=== PATIENT | female | born 1950 | race Caucasian/White ===

== ENCOUNTER 2016-11-01 12:15 | Emergency (ER) | END 2016-11-01 15:02 | disposition home or self-care (01) ==

== ENCOUNTER 2016-12-09 13:30 | Outpatient (CLI) | payer MEDICARE ==
[2016-12-09 19:10] LABS: BASOPHILS # (AUTO) 0.1 10^3/uL (0.0-0.1); BASOPHILS % (AUTO) 1.3 %; EOSINOPHILS # (AUTO) 0.3 10^3/uL (0.0-0.7); EOSINOPHILS % (AUTO) 2.5 %; HCT - HEMATOCRIT 30.2 % (37.0-47.0); HGB - HEMOGLOBIN 9.5 g/dL (12.0-16.0); LYMPHOCYTES # (AUTO) 2.3 10^3/uL (1.5-3.5); LYMPHOCYTES % (AUTO) 21.1 %; MEAN CORPUSCULAR HGB CONC 31.6 g/dL (32.0-36.0); MEAN CORPUSCULAR VOLUME 101.1 fL (81.0-99.0); MEAN PLATELET VOLUME 7.7 fL (7.9-10.8); MONOCYTES # (AUTO) 0.8 10^3/uL (0.0-1.0); MONOCYTES % (AUTO) 7.2 %; NEUTROPHILS # (AUTO) 7.4 10^3/uL (1.5-6.6); NEUTROPHILS % (AUTO) 67.9 %; NUCLEATED RED BLOOD CELLS AUTO 0.1 /100WBC; RED BLOOD COUNT 2.99 10^6/uL (4.20-5.40); RED CELL DISTRIBUTION WIDTH 16.2 % (12.0-15.0); UNCORRECTED WHITE BLOOD COUNT 10.9 x10^3/uL; WHITE BLOOD COUNT 10.9 x10^3/uL (4.8-10.8)
[2016-12-09 19:19] LABS: ALBUMIN/GLOBULIN RATIO 1.2 (1.0-2.2)
[2016-12-09 19:33] LABS: BILIRUBIN,TOTAL 0.3 mg/dL (0.2-1.0); BUN - BLOOD UREA NITROGEN 27 mg/dL (6-20); CALCIUM 10.1 mg/dL (8.5-10.3); CARBON DIOXIDE - CO2 23 mmol/L (21-32); CHLORIDE 102 mmol/L (101-111); CHOL/HDL RATIO 3.8 (<4.4); CHOLESTEROL 232 mg/dL; CREATININE 0.9 mg/dL (0.4-1.0); GFR - MDRD 63 (>89); GLUCOSE 87 mg/dL (70-100); HDL CHOLESTEROL 61 mg/dL; LDL/HDL RATIO 2.2 (<4.4); POTASSIUM 4.4 mmol/L (3.5-5.0); SODIUM 136 mmol/L (135-145); TOTAL PROTEIN 7.5 g/dL (6.7-8.2); TRIGLYCERIDES 173 mg/dL; VLDL CHOLESTEROL 35 mg/dL
[2016-12-09 20:02] LABS: PLATELET ESTIMATE, MANUAL INCREASED (>450,000) (NORMAL); PLATELET MORPHOLOGY RARE GIANT PLATELETS (NORMAL); SLIDE SENT FOR PATH REVIEW? Indicated
[2016-12-09 20:04] LABS: CBC SPECIMEN NUMBER 645759; PATHOLOGIST REVIEW ORDER PATH SLIDE REVIEW
== END 2016-12-09 13:31 | disposition home or self-care (01) ==
LOC: LAB.WCP 13:30
PROVIDERS: ATTEND Family Medicine
DX: R53.83 Other fatigue (principal); E78.5 Hyperlipidemia, unspecified
CPT/HCPCS: 36415; 80053; 80061; 84443; 85025

== ENCOUNTER 2017-01-03 12:45 | Outpatient (CLI) | payer MEDICARE | END 2017-01-03 12:46 | disposition home or self-care (01) | DX: Z12.2 Encounter for screening for malignant neoplasm of respiratory organs (principal); R91.1 Solitary pulmonary nodule; J43.9 Emphysema, unspecified; Z87.891 Personal history of nicotine dependence ==

== ENCOUNTER 2017-06-20 10:37 | Outpatient (CLI) | payer MEDICARE ==
--- NOTE | 2017-06-21 18:03 | Mammography Report ---
DIGITAL SCREENING MAMMOGRAM: 06/20/2017 CLINICAL INDICATION: A 67-year-old with history of late childbearing for screening. COMPARISON: 07/2015, 12/2012, 12/2011, 12/2010, 07/2009, 07/2008, 07/2007. TECHNIQUE: Routine CC and MLO projections were obtained of the breasts. The breasts again demonstrate scattered fibroglandular densities bilaterally. Coarse and punctate, t ypically benign calcifications are present. No suspicious masses, clustered microcalcifications, or regions of architectural distortion are identified. IMPRESSION: BENIGN FINDINGS. RECOMMENDATION: ROUTINE ANNUAL SCREENING UNLESS OTHERWISE CLINICALLY INDICATED. BIRADS CATEGORY: 2, BENIGN FINDINGS. STANDARD QUALIFYING STATEMENTS 1. This examination was reviewed with the aid of Computed-Aided Detection (CAD). 2. A negative or benign imaging report should not delay biopsy if clinically suspicious findings are present. Consider surgical consultation if warranted. More than 5% of cancers are not identified b y imaging. 3. Dense breasts may obscure an underlying neoplasm. JOB #: [id number] EXT JOB #:[id number]
== END 2017-06-20 10:38 | disposition home or self-care (01) ==
LOC: DI 10:37
PROVIDERS: ATTEND Family Medicine
DX: Z12.31 Encounter for screening mammogram for malignant neoplasm of breast (principal)
CPT/HCPCS: 77067

== ENCOUNTER 2017-06-23 08:02 | Day surgery (SDC) | payer MEDICARE ==
[2017-06-23] MEDS ORDERED: LACTATED RINGERS 1,000 ML IV ONE ×2 (08:50→10:50)
--- NOTE | 2017-06-23 10:05 | HISTORY & PHYSICAL EXAMINATION ---
HPI - History of Present Illness HPI Comment/Other: Visit Type: Initial Consult History of Present Illness: Patient is here today for consult, EGD and colonoscopy. ...................................................................Riley Jones RN May 06, 2017 10:40 AM Patient is here for iron deficiency anemia and evaluation of a hiatal hernia. Current Meds: PROBIOTIC CAPS (SACCHAROMYCES BOULARDII CAPS) Take one capsule by mouth daily RANITIDINE HCL 150 MG TABS (RANITIDINE HCL) take one tablet by mouth every evening VITAMIN E-400 CAPS (VITAMIN E CAPS) Take 94027 capsule by mouth daily GLUCOSAMINE CHONDROITIN MSM ORAL TABS (MISC NATURAL PRODUCTS) Take one 1500mg tablet by mouth daily SM VITAMIN B-12 500 MCG ORAL TABS (CYANOCOBALAMIN) Take one tablet by mouth daily PROAIR RESPICLICK 108 (90 BASE) MCG/ACT INH AEPB (ALBUTEROL SULFATE) Inhale two actuations every four to six hours as needed for wheezing or coughing HYDROCODONE-ACETAMINOPHEN 5-325 MG TABS (HYDROCODONE-ACETAMINOPHEN) Take one tablet up to three times daily for severe arthritis hip pain BIOTIN 1000 MCG TABS (BIOTIN) Take five tablets by mouth daily CENTRUM SILVER TABS (MULTIPLE VITAMINS-MINERALS) one po daily CALCIUM 600 MG ORAL TABS (CALCIUM) Take one tablet by mouth daily VITAMIN D 1000 UNIT TABS (CHOLECALCIFEROL) Take 5000 Iu once daily for vit D deficiency Allergies: BETADINE (Critical) ZOCOR (Critical) LEVAQUIN (Mild) Past Medical History: Reviewed history from 12/29/2013 and no changes required: Current Problems: HX TOBACCO USER (ICD-305.1) OSTEOARTHRITIS, KNEE, RIGHT (ICD-715.96) HYPERLIPIDEMIA (ICD-272.4) OSTEOPENIA (ICD-733.90) SOB Anemia Frequent Indigestion Heartburn Acid Reflux Depression Current Meds: ACYCLOVIR 400 MG TABS (ACYCLOVIR) Take one tablet 3 times daily for 5 days as needed for cold sores VICODIN 5-500 MG TABS (HYDROCODONE-ACETAMINOPHEN) 1-2 PO every 6 hours PRN Pain * KNEE SCOOTER dx: ankle and foot fracture VITAMIN D 1000 UNIT TABS (CHOLECALCIFEROL) once daily for vit D deficiency CALCIUM 500 MG TABS (CALCIUM) Two daily HYDROCHLOROTHIAZIDE 12.5 MG CAPS (HYDROCHLOROTHIAZIDE) one QD Allergies: BETADINE, ZOCOR, * CHANTIX. Intolerant of Levaquin--N/V Past Surgical History: Reviewed history from 07/03/2015 and no changes required: Left knee - ORIF Left hip arthroplasty - 1997 Left lower eyelid surgery - 1991 (basal cell carcinoma) Cataract Extraction Total Hip Arthroplasty R Knee Arthroscopy Family History Summary: Reviewed history Last on 06/10/2015 and no changes required:05/06/2017 Father (biol.) - Has a father - Entered On: 10/11/2014 Mother (biol.) - Has a Hx of Melanoma - Entered On: 06/10/2015 Mother (biol.) - Has Family History of Other Medical Problems - Heart attack, Stents - Entered On: 05/06/2017 Sister (full) - Has Family History of Other Medical Problems - Cancer, age 61 - Entered On: 05/06/2017 General Comments - FH: Father: , EtOH Social History: Reviewed history from 06/10/2015 and no changes required: 40 year pack history Lives by herself Alcohol Use - no Drug Use - no Smoking History: Patient is a former smoker. Risk Factors: Smoked Tobacco Use: Former smoker Cigarettes: Yes -- 1/4 to 1/2 pack(s) per day, Year started: 1971 Years smoked: 40 Year quit: 2017 Years Since Last Quit: 0 Smokeless Tobacco Use: Never Passive smoke exposure: no Drug use: no HIV high-risk behavior: no Caffeine use: 5 drinks per day Alcohol use: no Exercise: yes Times per week: 5 Type of Exercise: 3 mile walk Seatbelt use: 100 % Sun Exposure: rarely Family History Risk Factors: Family History of WA in females < 65 years old: no Family History of WA in males < 55 years old: no Physical Exam General: well developed, well nourished, in no acute distress Lungs: clear bilaterally to A & P Heart: regular rate and rhythm, S1, S2 without murmurs, rubs, gallops, or clicks Abdomen: bowel sounds positive; abdomen soft and non-tender without masses, organomegaly, or hernias noted Pulses: pulses normal in all 4 extremities Extremities: no clubbing, cyanosis, edema, or deformity noted with normal full range of motion of all joints Cervical Nodes: no significant adenopathy Psych: alert and cooperative; normal mood and affect; normal attention span and concentration Impression & Recommendations: Problem # 1: Anemia (ICD-285.9) (LAD72-L04.9) Will proceed with both EGD and Colonoscopy PMH/PSH - Past Medical History Cardiovascular: positive: None Respiratory: positive: None Neuro: positive: None Endocrine/Autoimmune: positive: None GI: positive: GERD, Colon polyps : positive: None HEENT: positive: None Psych: positive: None Musculoskeletal: positive: Osteoarthritis, Osteoporosis Derm: positive: None MRSA Hx?: No - Past Surgical History General: positive: Colonoscopy Ortho: positive: Hip replacement, Knee replacement HEENT: positive: Cataracts Social & Family Hx - Social History Does the pt smoke?: No Smoking Status: Never smoker Meds/Allgy - Home Medications Home Medications: Ambulatory Orders Medication Instructions Recorded Confirmed Calcium Citrate [Calcitrate] 200 mg PO DAILY 12/13/13 04/04/17 HYDROcod/ACETAM 5/325 [Vicodin 1 each PO Q4-6H PRN 12/13/13 04/04/17 5/325] Multivitamin [Multivitamins] 1 each PO DAILY 12/13/13 04/04/17 Vit D3-Vit K/Berberine/Hops 1 each PO DAILY 12/13/13 04/04/17 [Ostera Tablet] Azithromycin [Zithromax] 250 mg PO DAILY #6 tablet 11/01/16 04/04/17 Benzonatate [Tessalon] 100 mg PO TID PRN #20 capsule 11/01/16 04/04/17 guaiFENesin/DEXTROMETHORPHAN 10 ml PO Q6H PRN #120 ml 11/01/16 04/04/17 [Robitussin Dm] Cyanocobalamin (Vitamin B-12) 100 mcg PO DAILY 04/04/17 04/04/17 [Vitamin B-12 (100mcg tab)] Omeprazole [PriLOSEC] 20 mg ORAL DAILY PRN 06/23/17 06/23/17 raNITIdine [Zantac] 150 mg ORAL DAILY 06/23/17 06/23/17 - Allergies Allergies/Adverse Reactions: Allergies Allergy/AdvReac Type Severity Reaction Status Date / Time povidone-iodine Allergy Intermediate swelling Verified 12/12/13 14:54 [From Betadine] soap * [From Betadine] Allergy Intermediate swelling Verified 12/12/13 14:54 Exam - Vital Signs Vital Signs: Vital Signs x48h Temp Pulse Resp BP Pulse Ox 06/23/17 08:27 36.7 C 97 18 158/84 H 96
[2017-06-23] MEDS ORDERED: MIDAZOLAM 2 MG/2 ML VIAL IVP ONE (10:06)
[2017-06-23] MEDS ORDERED: fentaNYL 100 MCG/2 ML VIAL IVP ONE (10:06)
[2017-06-23] MEDS ORDERED: BENZOCAINE/TETRACAINE/BUTAMBEN SPRAY 56 GM TOP ONE ×2 (10:08→10:11)
[2017-06-23 12:18] VITALS: BP 125/66
== END 2017-06-23 08:03 | disposition home or self-care (01) ==
LOC: SDS 08:02
PROVIDERS: ATTEND Surgery
PROC: 0DBL8ZX Excision of Transverse Colon, Via Natural or Artificial Opening Endoscopic, Diagnostic (ICD-10-PCS; principal; 2017-06-23 09:30)
PROC: 0DB68ZX Excision of Stomach, Via Natural or Artificial Opening Endoscopic, Diagnostic (ICD-10-PCS; 2017-06-23 09:30)
DX: K29.70 Gastritis, unspecified, without bleeding (principal); K25.9 Gastric ulcer, unspecified as acute or chronic, without hemorrhage or perforation; K44.9 Diaphragmatic hernia without obstruction or gangrene; K64.8 Other hemorrhoids; D12.3 Benign neoplasm of transverse colon; K57.90 Diverticulosis of intestine, part unspecified, without perforation or abscess without bleeding; Z87.891 Personal history of nicotine dependence
CPT/HCPCS: 43239; 45380; 88305; A9270; J7120

== ENCOUNTER 2017-06-27 13:43 | Outpatient (CLI) | payer MEDICARE ==
--- NOTE | 2017-06-28 07:33 | DEXA Report ---
DEXA SCAN: 06/27/2017 CLINICAL INDICATION: Postmenopausal. TECHNIQUE: Dual energy x-ray absorptiometry (DXA) was performed on a [employer] system. Regions measured are the AP spine, femoral neck, and, if needed, forearm. COMPARISON: None. In accordance with the International Society for Clinical Densitometry (ISCD) guidelines, data from previous exams may be reanalyzed using current recommendations and techniques. This is done to allow a more accurate basis for comparison with the current study. FINDINGS: The data for the lumbar spine is as follows: REGION BMD (g/cm/cm) T-SCORE Z-SCORE L1 0.851 -2.3 -0.4 L2 0.965 -2.0 0.0 L3 0.976 -1.9 0.1 L4 1.060 -1.2 0.8 L1-L4 0.964 -1.8 0.1 NOTE: All evaluable vertebrae are used for classification. The data for the hip is as follows: REGION BMD (g/cm/cm) T-SCORE Z-SCORE Neck 0.922 -0.8 0.9 TOTAL 0.822 -1.5 0.0 NOTE: The femoral neck or total proximal femur, whichever is lowest, is used for classification. IMPRESSION: 1. THE WHO CLASSIFICATION BASED ON THE INTERNATIONAL REFERENCE STANDARD IS OSTEOPENIA. THE FRACTURE RISK IS INCREASED. 2. RIGHT HIP EVALUATION PERFORMED DUE TO PREVIOUS LEFT HIP REPLACEMENT. RECOMMENDATION: Patients with diagnosis of osteoporosis or osteopenia should have regular bone mineral density assessment. For those eligible for Medicare, routine testing is allowed once every 2 years. Testing frequency can be increased for patients who have rapidly progressing disease or for those who are receiving medical therapy to restore bone mass. COMMENT: World Health Organization (WHO) definitions for osteoporosis and osteopenia: NORMAL BMD: T-score at -1.0 or higher, fracture risk is low. OSTEOPENIA BMD: T-score between -1.0 and -2.5, fracture risk is increased. OSTEOPOROSIS BMD: T-score at -2.5 or lower, fracture risk high. National Osteoporosis Foundation recommends: 1. Obtain adequate dietary calcium (at least 1200 mg per day) and vitamin D (400 -800 international units per day). 2. Participate, as appropriate, in regular weightbearing and muscle- strengthening exercise. 3. Avoid tobacco use and reduce alcohol and caffeine intake. 4. For more detailed information see the website at www.NOF.org. MTDD
== END 2017-06-27 13:44 | disposition home or self-care (01) ==
LOC: DI 13:43
PROVIDERS: ATTEND Family Medicine
DX: M85.88 Other specified disorders of bone density and structure, other site (principal); Z96.642 Presence of left artificial hip joint; Z78.0 Asymptomatic menopausal state
CPT/HCPCS: 77080

== ENCOUNTER 2017-07-01 13:27 | Outpatient (CLI) | payer MEDICARE | END 2017-07-01 13:28 | disposition home or self-care (01) | LOC: RT 13:27 | PROVIDERS: ATTEND Internal Medicine Pulmonary Disease | DX: R91.1 Solitary pulmonary nodule (principal) ==

== ENCOUNTER 2018-06-06 16:15 | Outpatient (CLI) | payer MEDICARE ==
--- NOTE | 2018-06-07 08:17 | XRAY Report ---
Procedure Date: 06/06/2018 Accession Number: [id number] / [id number] Procedure: XR - Lumbar Spine Complete CPT Code: FULL RESULT: EXAM: Lumbar Spine Complete, Sacrum/Coccyx DATE: 06/06/2018 4:57 PM CLINICAL HISTORY: LUMBOSACRAL PAIN COMPARISON: None. TECHNIQUE: 2 views. FINDINGS: Alignment: Mild levoconvex scoliosis centered about L3. No spondylolisthesis. Bones: Five qjl-uab-ptiaudo lumbar vertebral bodies are present. There is an anterior wedge compression fracture of T12 with 50% loss of height anteriorly, also present in 2016 and therefore chronic. No acute fracture is identified. Disks: Mild multilevel loss of disc space height, most pronounced at T12-L1. Facets: Moderate facet arthropathy of L4 and L5. Sacroiliac Joints: Congruent. Soft Tissues: Normal. The visualized bowel gas pattern is normal. No coccygeal fracture is identified. The patient is status post bilateral total hip replacements, partially imaged. There are periprosthetic lucencies associated with the acetabular component of the left total hip arthroplasty. IMPRESSION: Chronic T12 wedge compression fracture. Periprosthetic osseous lucencies of the acetabular component of the left total hip arthroplasty. RADIA
--- NOTE | 2018-06-07 08:17 | XRAY Report ---
Procedure Date: 06/06/2018 Accession Number: [id number] / [id number] Procedure: XR - Sacrum/Coccyx CPT Code: FULL RESULT: EXAM: Lumbar Spine Complete, Sacrum/Coccyx DATE: 06/06/2018 4:57 PM CLINICAL HISTORY: LUMBOSACRAL PAIN COMPARISON: None. TECHNIQUE: 2 views. FINDINGS: Alignment: Mild levoconvex scoliosis centered about L3. No spondylolisthesis. Bones: Five xrh-lqt-ceoclgt lumbar vertebral bodies are present. There is an anterior wedge compression fracture of T12 with 50% loss of height anteriorly, also present in 2016 and therefore chronic. No acute fracture is identified. Disks: Mild multilevel loss of disc space height, most pronounced at T12-L1. Facets: Moderate facet arthropathy of L4 and L5. Sacroiliac Joints: Congruent. Soft Tissues: Normal. The visualized bowel gas pattern is normal. No coccygeal fracture is identified. The patient is status post bilateral total hip replacements, partially imaged. There are periprosthetic lucencies associated with the acetabular component of the left total hip arthroplasty. IMPRESSION: Chronic T12 wedge compression fracture. Periprosthetic osseous lucencies of the acetabular component of the left total hip arthroplasty. RADIA
== END 2018-06-06 16:16 | disposition home or self-care (01) ==
LOC: DI 16:15
PROVIDERS: ATTEND Orthopaedic Surgery
DX: M48.54XS Collapsed vertebra, not elsewhere classified, thoracic region, sequela of fracture (principal); Z96.643 Presence of artificial hip joint, bilateral
CPT/HCPCS: 72110; 72220

== ENCOUNTER 2019-03-12 14:31 | Outpatient (CLI) | payer MEDICARE ==
--- NOTE | 2019-03-12 16:29 | CT Report ---
Reason: BRONCHIECTASIS,HX OF TOBACCO USE Procedure Date: 03/12/2019 Accession Number: [id number] / [id number] Procedure: CT - CHEST WO CPT Code: FULL RESULT: EXAM: CT CHEST EXAM DATE: 03/12/2019 02:47 PM. CLINICAL HISTORY: Bronchiectasis, history of tobacco use. COMPARISONS: CHEST W/O 04/22/2017 11:01 AM CHEST SCREEN LOW DOSE W/O 01/03/2017 1:09 PM. TECHNIQUE: Routine helical CT imaging was performed through the chest. IV contrast: None. Reconstructions: Coronal and sagittal. In accordance with CT protocol optimization, one or more of the following dose reduction techniques were utilized for this exam: automated exposure control, adjustment of mA and/or KV based on patient size, or use of iterative reconstructive technique. FINDINGS: Lungs/Pleura: Right lun. There is a vaguely wedge-shaped area of groundglass opacity measuring roughly 3 x 4 x 3 cm in the anterior segment of the right upper lobe, which is a new finding; reference series 4 image 19. 2. Stable bandlike pleural-parenchymal changes with associated focal bronchiectasis extending to posteromedial major fissure are unchanged; reference series 4 images 22 through 24. 3. Previously described apical pleural parenchymal scarring is diminished. 4. New bandlike pleural parenchymal scarring change noted in the medial right middle lobe; reference series 6 image 15. 5. Otherwise no new pulmonary nodules. Left lun. New bandlike pleural parenchymal scarring change in the medial lingula; reference series 6 image 13. 2. No new pulmonary nodules. Pulmonary vasculature is normal. No pericardial or pleural effusion. No pneumothorax. Mediastinum: Stable moderate coronary artery calcium of the left anterior descending coronary artery and right coronary artery. No adenopathy or masses. The heart and great vessels are otherwise normal. Bones: Stable anterior wedging compression of T12. Visualized Abdomen: Stable moderate to large hiatal hernia. Other: None. IMPRESSION: 1. New wedge-shaped volume of nonspecific groundglass opacity in the right upper lobe favors infectious process/alveolitis. Consider short interval follow-up imaging in 6 months to ensure expected resolution. 2. New symmetrically positioned pleural-parenchymal scarring changes anterior right middle lobe and anterior lingula presumed sequela of recent inflammation or infection. 3. Otherwise stable exam findings as described. No new pulmonary nodules. RADIA
== END 2019-03-12 14:32 | disposition home or self-care (01) ==
LOC: DI 14:31
PROVIDERS: ATTEND Family Medicine
DX: J47.9 Bronchiectasis, uncomplicated (principal); Z87.891 Personal history of nicotine dependence
CPT/HCPCS: 71250

== ENCOUNTER 2019-11-28 18:14 | Outpatient (CLI) | payer MEDICARE | END 2019-11-28 18:15 | disposition critical access hospital (66) | LOC: EMS 18:14 | PROVIDERS: ATTEND Surgery | DX: M25.562 Pain in left knee (principal); W01.0XXA Fall on same level from slipping, tripping and stumbling without subsequent striking against object, initial encounter; Y93.01 Activity, walking, marching and hiking; Y92.000 Kitchen of unspecified non-institutional (private) residence as the place of occurrence of the external cause | CPT/HCPCS: A0425; A0429 ==

== ENCOUNTER 2019-11-28 18:46 | Emergency (ER) | payer MEDICARE ==
[2019-11-28] MEDS ORDERED: ACETAMINOPHEN 325 MG TABLET PO STA (19:34)
--- NOTE | 2019-11-28 19:49 | ED Physician Documentation ---
History of Present Illness - Stated complaint Stated Complaint: FELL, LEFT KNEE PAIN - Chief complaint Chief Complaint: General - History obtained from History obtained from: Patient, EMS - History of Present Illness Timing: Today Pain level max: 5 Pain level now: 1 - Additonal information Additional information: 69-year-old female presents to the emergency department after using her walker at home and falling in the kitchen. She states that she does not think she actually hit the ground. States that she heard to the outside of her knee. She states that the pain is now resolved. Worse with movement and better with rest. No head, neck, back pain. Review of Systems Constitutional: denies: Fever, Chills Respiratory: denies: Cough GI: denies: Vomiting, Diarrhea Skin: denies: Rash PD PAST MEDICAL HISTORY - Past Medical History Cardiovascular: None Respiratory: None Endocrine/Autoimmune: None GI: GERD, Colon polyps : None HEENT: None Psych: None Musculoskeletal: Osteoarthritis, Osteoporosis Derm: None - Past Surgical History General: Colonoscopy Ortho: Hip replacement, Knee replacement HEENT: Cataracts - Present Medications Home Medications: Ambulatory Orders Medication Instructions Recorded Confirmed Calcium Citrate [Calcitrate] 600 mg PO DAILY 12/13/13 06/27/17 HYDROcod/ACETAM 5/325 [Vicodin 1 each PO TID 12/13/13 06/27/17 5/325] Cyanocobalamin (Vitamin B-12) 500 mcg PO DAILY 04/04/17 06/27/17 [Vitamin B-12 (100mcg tab)] raNITIdine [Zantac] 150 mg ORAL DAILY 06/23/17 06/27/17 Biotin 5,000 mcg PO DAILY 06/27/17 06/27/17 Cholecalciferol [Vitamin D3] 5,000 unit PO DAILY 06/27/17 06/27/17 Glucosam/Chondr-Msm6/Manganese 2 cap PO DAILY 06/27/17 06/27/17 [Glucosamine-Chondroitin Sftgl] Lactobacillus Acidophilus 1 each PO DAILY 06/27/17 06/27/17 [Probiotic Acidophilus] Multivitamin [Multiple Vitamins] 1 each PO DAILY 06/27/17 06/27/17 Vitamin E 4,000 unit PO DAILY 06/27/17 06/27/17 Hydrocodone/Acetaminophen 1 - 2 each PO Q6H PRN #14 tablet 11/28/19 [Hydrocodon-Acetaminophen 5-325] - Allergies Allergies/Adverse Reactions: Allergies Allergy/AdvReac Type Severity Reaction Status Date / Time povidone-iodine Allergy Intermediate swelling Verified 12/12/13 14:54 [From Betadine] soap * [From Betadine] Allergy Intermediate swelling Verified 12/12/13 14:54 - Social History Does the pt smoke?: No Smoking Status: Never smoker PD ED PE NORMAL - Vitals Vital signs reviewed: Yes - General General: Alert and oriented X 3, No acute distress - HEENT HEENT: Atraumatic, Moist mucous membranes - Neck Neck: Supple, no meningeal sign, No bony TTP - Cardiac Cardiac: RRR - Respiratory Respiratory: No respiratory distress, Clear bilaterally - Derm Derm: Warm and dry - Extremities Extremities: No edema, No calf tenderness / cord, Other (Tender to palpation over the lateral aspect of the left knee. ACL, MCL, PCL, LCL intact. lateral tibial plateau tenderness. No swelling. Neurovascular intact) - Neuro Neuro: Alert and oriented X 3 Results - Vitals Vitals: Vital Signs - 24 hr 11/28/19 11/28/19 18:56 21:25 Temperature 36.9 C 36.6 C Heart Rate 69 76 Respiratory 16 20 Rate Blood Pressure 118/70 124/66 O2 Saturation 98 95 Oxygen O2 Source Room air - Rads (name of study) Left knee x-ray Radiology: Prelim report reviewed, EMP read contemporaneously, See rad report (Schatzker type 2 lateral tibia plateau fracture. ) L knee CT Radiology: Prelim report reviewed, EMP read contemporaneously, See rad report (1. Bilateral tibial plateau fracture. There is mild displacement and moderate comminution of the lateral tibial plateau fracture with mild to moderate depression, which measures at least 6 mm. nondisplaced oblique medial plateau fracture. 2. Associated large lipohemarthrosis. 3. Bones are severely osteopenic. No additional femoral or fibular fracture noted on this exam. 4. Mild to moderate tricompartmental degenerative change about the knee. Bilateral meniscal chondrocalcinosis. ) PD MEDICAL DECISION MAKING - ED course Complexity details: reviewed results, re-evaluated patient, considered differential, d/w patient, d/w construction consultant ED course: 69-year-old female with a left tibial plateau fracture. Discussed the case with Dr. Nevarez, orthopedics who recommends a bulky splint with a knee immobilizer. Nonweightbearing. Patient ambulating well with a walker in the emergency department. She does not want her family called and does not want family or friends to be involved in her care at this time. She states that she will be fine at home alone. Neurovascular intact. Patient counseled regarding signs and symptoms for which I believe and urgent re-evaluation would be necessary. Patient with good understanding of and agreement to plan and is comfortable going home at this time This document was made in part using voice recognition software. While efforts are made to proofread this document, sound alike and grammatical errors may occur. Departure - Departure Disposition: 01 Home, Self Care Clinical Impression: Fracture of left tibial plateau Qualifiers: Encounter type: initial encounter Fracture type: closed Qualified Code(s): S82.142A - Displaced bicondylar fracture of left tibia, initial encounter for closed fracture Condition: Good Instructions: ED Fx Knee Follow-Up: Richard Kumar DO [Primary Care Provider] - Within 1 week [facility] [Provider Group] - Within 1 week Prescriptions: Hydrocodone/Acetaminophen [Hydrocodon-Acetaminophen 5-325] 1 - 2 each PO Q6H PRN #14 tablet PRN Reason: pain Comments: You are to be non-weight bearing at home. Keep the immobilizer on until you see orthopedics. I spoke with Dr. Roque onofre. Do not drink alcohol or drive while on narcotic pain medicine. Note that many narcotic pain relievers also contain tylenol/acetaminophen. Please ensure that your total dose of acetaminophen from all sources does not exceed 3 grams (3000mg) per day. You may constipated on this medication, take a stool softener such as "Colace" twice a day while you are on it. Also recommend a tsdq-xfw-kskoriz laxative such as senna or MiraLAX any day that you do not have a bowel movement. If you received narcotic pain medication in the emergency department, do not drive or operate machinery for the next 24 hours. Discharge Date/Time: 11/28/19 21:46
--- NOTE | 2019-11-28 20:23 | XRAY Report ---
Reason: L knee pain s/p fall Procedure Date: 11/28/2019 Accession Number: [id number] / [id number] Procedure: XR - Knee 4 View LT CPT Code: Final Report FULL RESULT: EXAM: LEFT KNEE RADIOGRAPHY EXAM DATE: 11/28/2019 07:58 PM. CLINICAL HISTORY: L knee pain s/p fall. COMPARISON: None TECHNIQUE: 3 views. FINDINGS: Bones: There is a split, depressed fracture of the lateral tibial plateau. Joints: Moderate effusion. No subluxations. Soft Tissues: Unremarkable. IMPRESSION: Schatzker type 2 lateral tibia plateau fracture. RADIA
--- NOTE | 2019-11-28 21:25 | CT Report ---
Reason: lateral tibial plateau fracture. Procedure Date: 11/28/2019 Accession Number: [id number] / [id number] Procedure: CT - LOWER EXTREMITY WO - LT CPT Code: Final Report FULL RESULT: EXAM: LEFT KNEE CT WITHOUT CONTRAST EXAM DATE: 11/28/2019 08:46 PM. CLINICAL HISTORY: Lateral tibial plateau fracture. COMPARISON: None. TECHNIQUE: Thin-section axial images were acquired of the knee without contrast. Post-processing: Coronal and sagittal reformats. Other: None. In accordance with CT protocol optimization, one or more of the following dose reduction techniques were utilized for this exam: automated exposure control, adjustment of mA and/or KV based on patient size, or use of iterative reconstructive technique. FINDINGS: Bones: Bones are severely osteopenia. There is a moderate comminuted as well as mild to moderate depressed lateral tibial plateau fracture with approximately 6.4 mm depression. Minimal displacement of the fracture fragments. There is also a nondisplaced oblique fracture involving the medial tibial plateau (image 73 series 8). The oblique extent of the lateral as well as the medial plateau fractures extend up to the level of the tibial tuberosity (image 185 series 3). As visualized there is no definite corresponding fibular fracture. No femoral fracture is noted. Joints: Large lipohemarthrosis. Mild to moderate tricompartmental degenerative change. Bilateral meniscal chondrocalcinosis. Soft tissues: Localized soft tissue swelling is present. Atherosclerotic vascular calcifications of the popliteal. IMPRESSION: 1. Bilateral tibial plateau fracture. There is mild displacement and moderate comminution of the lateral tibial plateau fracture with mild to moderate depression, which measures at least 6 mm. Nondisplaced oblique medial plateau fracture. 2. Associated large lipohemarthrosis. 3. Bones are severely osteopenic. No additional femoral or fibular fracture noted on this exam. 4. Mild to moderate tricompartmental degenerative change about the knee. Bilateral meniscal chondrocalcinosis. RADIA
[2019-11-28 21:26] VITALS: BP 124/66
--- NOTE | 2019-11-29 15:25 | MISCELLANEOUS PROVIDER NOTE ---
Miscellaneous Provider Note - - Note: Advised last evening 11/28/2019 by Kieran Diaz of the emergency medicine department that patient had a "type II" lateral tibial plateau fracture. Patient reportedly neurovascularly intact distally with no signs of neurovascular compromise or compartment syndrome. Patient reportedly was comfortable and reportedly used to ambulating with a walker. We discussed the fact that she had contralateral knee replacement and reportedly pre-existing underlying degenerative disease in the left knee. We talked about the potential need for operative intervention whether it be acute or once her injury had healed. Advised to place bulky Wallace dressing from toe to thigh Clay wrap and then knee immobilizer in some flexion to comfort also to facilitate ambulation. Advice was that if patient was feeling comfortable and safe that she may be discharged to home. If this was not the case then recommendation was to admit for observation pain control physical therapy and placement as necessary. Studies reviewed today for follow-up of this discussion with the emergency medicine physician. It is noted that the fracture is in fact not a Schatzker II But rather involves a nondisplaced medial plateau fracture. The potential for neurovascular compartmental risks in this type of fracture are known. Though given above history thought to be unlikely, we will reach out to the patient and facilitate timely follow-up as necessary.
== END 2019-11-28 21:46 | disposition home or self-care (01) ==
LOC: EDUNIT# → ED 18:46
DX: S82.142A Displaced bicondylar fracture of left tibia, initial encounter for closed fracture (principal); W01.0XXA Fall on same level from slipping, tripping and stumbling without subsequent striking against object, initial encounter; Y93.01 Activity, walking, marching and hiking; Y92.000 Kitchen of unspecified non-institutional (private) residence as the place of occurrence of the external cause; M85.862 Other specified disorders of bone density and structure, left lower leg; M17.12 Unilateral primary osteoarthritis, left knee; M11.262 Other chondrocalcinosis, left knee
CPT/HCPCS: 73564; 73700; 99283; 99284; A9270

== ENCOUNTER 2020-01-04 11:29 | Outpatient (CLI) | payer MEDICARE ==
--- NOTE | 2020-01-04 23:00 | XRAY Report ---
Reason: SHORTNESS OF BREATH, BRONCHIECTASIS Procedure Date: 01/04/2020 Accession Number: [id number] / [id number] Procedure: WCP - Chest 1 View X-Ray CPT Code: 74747 Final Report FULL RESULT: EXAM: CHEST RADIOGRAPHY EXAM DATE: 01/04/2020 12:30 PM. CLINICAL HISTORY: SHORTNESS OF BREATH, BRONCHIECTASIS. COMPARISON: CHEST 2 VIEW PA/LAT 12/03/2016 1:49 PM CHEST W/O 03/12/2019 2:40 PM. TECHNIQUE: 1 view. FINDINGS: Atherosclerotic plaque calcifications are seen in the aorta. The aorta is tortuous. The heart size is normal. There is a large hiatal hernia, unchanged. Ill-defined right lower lobe peripheral airspace opacities are seen. No focal consolidation is seen on the left. There is no pleural effusion or pneumothorax. Degenerative changes are seen in the spine with an unchanged lower thoracic spine compression deformity. IMPRESSION: Ill-defined peripheral airspace opacities in the right lower lobe may represent an atypical pneumonia. RADIA
== END 2020-01-04 23:59 | disposition home or self-care (01) ==
LOC: DI.WCP 11:29
PROVIDERS: ATTEND Family Medicine
DX: R91.8 Other nonspecific abnormal finding of lung field (principal); E78.5 Hyperlipidemia, unspecified; Z11.59 Encounter for screening for other viral diseases
CPT/HCPCS: 36415; 71045; 80053; 80061; 83880; 85025; 86803

== ENCOUNTER 2020-01-04 11:43 | Outpatient (CLI) | payer MEDICARE ==
[2020-01-04 19:26] LABS: BASOPHILS % (AUTO) 0.6 %; EOSINOPHILS # (AUTO) 0.3 10^3/uL (0.0-0.7); HGB - HEMOGLOBIN 10.6 g/dL (12.0-16.0); LYMPHOCYTES # (AUTO) 1.9 10^3/uL (1.5-3.5); LYMPHOCYTES % (AUTO) 30.2 %; MEAN CORPUSCULAR HEMOGLOBIN 24.4 pg (27.0-31.0); MEAN CORPUSCULAR HGB CONC 29.2 g/dL (32.0-36.0); MEAN CORPUSCULAR VOLUME 83.4 fL (81.0-99.0); MEAN PLATELET VOLUME 10.4 fL (7.9-10.8); MONOCYTES # (AUTO) 0.8 10^3/uL (0.0-1.0); MONOCYTES % (AUTO) 12.4 %; NEUTROPHILS # (AUTO) 3.3 10^3/uL (1.5-6.6); NEUTROPHILS % (AUTO) 51.2 %; PLT - PLATELET COUNT 505 10^3/uL (130-450); RED BLOOD COUNT 4.35 10^6/uL (4.20-5.40); RED CELL DISTRIBUTION WIDTH 21.6 % (12.0-15.0); WHITE BLOOD COUNT 6.4 x10^3/uL (4.8-10.8)
[2020-01-04 19:45] LABS: ALBUMIN 4.3 g/dL (3.2-5.5); ALBUMIN/GLOBULIN RATIO 1.2 (1.0-2.2); ALKALINE PHOSPHATASE 90 IU/L (42-121); ALT ALANINE AMINOTRANSFERASE 13 IU/L (10-60); AST ASPARTATE AMINOTRANSFERASE 35 IU/L (10-42); BILIRUBIN,TOTAL 0.2 mg/dL (0.2-1.0); BUN - BLOOD UREA NITROGEN 9 mg/dL (6-20); CALCIUM 9.7 mg/dL (8.5-10.3); CARBON DIOXIDE - CO2 24 mmol/L (21-32); CHLORIDE 102 mmol/L (101-111); CHOL/HDL RATIO 5.4 (<4.4); CHOLESTEROL 241 mg/dL; CREATININE 0.8 mg/dL (0.4-1.0); GFR - MDRD 71 (>89); GLUCOSE 89 mg/dL (70-100); HDL CHOLESTEROL 45 mg/dL; LDL CHOLESTEROL,CALCULATED 164 mg/dL; LDL/HDL RATIO 3.6 (<4.4); SODIUM 139 mmol/L (135-145); VLDL CHOLESTEROL 32 mg/dL
[2020-01-04 20:45] LABS: PLATELET ESTIMATE, MANUAL INCREASED (>450,000) (NORMAL); PLATELET MORPHOLOGY NORMAL APPEARANCE (NORMAL)
== END 2020-01-04 23:59 | disposition home or self-care (01) ==
LOC: LAB.WCP 11:43
PROVIDERS: ATTEND Family Medicine
DX: R06.02 Shortness of breath (principal); Z11.59 Encounter for screening for other viral diseases; E78.5 Hyperlipidemia, unspecified
CPT/HCPCS: 36415; 80053; 80061; 83721; 83880; 85025; 86803

== ENCOUNTER 2020-01-17 10:22 | Outpatient (CLI) | payer MEDICARE | END 2020-01-17 10:23 | disposition home or self-care (01) | LOC: DI 10:22 | PROVIDERS: ATTEND Family Medicine | DX: R01.1 Cardiac murmur, unspecified (principal); R06.02 Shortness of breath; I34.0 Nonrheumatic mitral (valve) insufficiency; I27.20 Pulmonary hypertension, unspecified; I51.7 Cardiomegaly; I51.9 Heart disease, unspecified | CPT/HCPCS: 93306 ==

== ENCOUNTER 2020-01-21 11:35 | Outpatient (CLI) | payer MEDICARE ==
[2020-01-21] MEDS ORDERED: REGADENOSON 0.4 MG/5 ML SYRINGE IVP ONE ×2 (14:24→16:07)
[2020-01-21] MEDS ORDERED: AMINOPHYLLINE 250 MG/10 ML VIAL ONE (14:24)
--- NOTE | 2020-01-21 15:20 | CARDIAC PROCEDURE NOTE ---
DATE OF SERVICE: 01/21/2020 Physician: Joana Martin MD, [facility] INDICATION: Shortness of breath. CARDIAC RISK FACTORS 1. Postmenopausal status. 2. Advanced age. 3. Ex-smoker (quit 5 years ago). 4. Family history of heart disease. DESCRIPTION OF PROCEDURE: After signing informed consent, the patient underwent a Lexiscan pharmaceutical stress test with nuclear myocardial perfusion imaging. RESTING HEART RATE: 89. PEAK HEART RATE: 115. RESTING BLOOD PRESSURE: 148/98. PEAK BLOOD PRESSURE: 158/94. Lexiscan was infused per protocol. The patient had brief flushing, shortness of breath and chest tightness. These resolved after 1-2 minutes spontaneously. Oxygen saturation remained 95-97% on room air throughout the entire test. RESTING EKG: Normal sinus rhythm, left atrial enlargement, LVH with strain and left IVCD and with small inferior Q-waves. EKG AT PEAK: Continued findings of "strain pattern," no new ST segment or T- wave changes. SUMMARY 1. Abnormal EKG. 2. Brief shortness of breath and chest tightness occurred with Lexiscan infusion, oxygen saturation remained greater than 92%. 3. Nonspecific changes on resting EKG are present, cannot comment on ischemic changes therefore. 4. Nuclear images reported separately. 5. This patient's cardiac risk based on all the above: Low-Moderate. cc: Richard Kumar DO TD: 01/21/2020 15:05 MTDD
--- NOTE | 2020-01-22 09:25 | Nuclear Medicine Report ---
Reason: SHORTNESS OF BREATH Procedure Date: 01/21/2020 Accession Number: [id number] / [id number] Procedure: NM - Myocardial Perfusion STR/RST CPT Code: Final Report FULL RESULT: EXAM: SINGLE-ISOTOPE PHARMACOLOGICAL STRESS TEST WITH REGADENOSON. SINGLE-ISOTOPE AND TWO-DAY REST/STRESS MYOCARDIAL PERFUSION SCANS WITH TOMOGRAPHIC IMAGING, QUANTITATIVE ANALYSIS, WALL MOTION ANALYSIS AND CALCULATION OF EJECTION FRACTION. EXAM DATE: 01/21/2020 04:05 PM. CLINICAL HISTORY: SHORTNESS OF BREATH. Family history of heart disease. COMPARISON: None. TECHNIQUE: A pharmacological stress was performed with the infusion of 0.4 mg regadenoson per protocol. According to protocol, 10.1 mCi of Tc-99m sestamibi was injected for stress myocardial perfusion scan. Motion correction was applied when appropriate. The following day after the intravenous administration of 43.8 mCi of Tc-99m sestamibi, a rest myocardial perfusion scan was done with tomography. Motion correction was applied when appropriate. Gated tomographic images were obtained for wall motion analysis and computation of left ventricular ejection fraction. FINDINGS: Perfusion images: Left ventricular chamber size appears normal at rest and unchanged at stress. Moderate size, moderate-severe fixed perfusion deficit involving the mid to basal inferolateral/inferior wall. Moderate size, moderate-severe reversible perfusion deficit involving the apical half inferolateral wall. SSS 13, SRS 5, SDS 7. Gated images: There is evidence of basal inferior/inferolateral wall hypokinesis. Calculated left ventricular EDV 119 mL, ESV 81 mL. The left ventricular ejection fraction is estimated at 32% (normal > 50%). IMPRESSION: 1. Moderate size, moderate-severe reversible perfusion deficit apical half inferolateral wall suggestive of stress-induced ischemia. 2. Moderate size, moderate-severe fixed perfusion deficit involving the mid to basal inferolateral/inferior wall. 3. Left ventricular ejection fraction of 32% (normal > 50%). Please correlate findings with stress ECG tracings and procedure notes. RADIA
--- NOTE | 2020-01-22 10:24 | DEXA Report ---
Reason: BONE DISORDER Procedure Date: 01/21/2020 Accession Number: [id number] / [id number] Procedure: DEX - Dexa Spine and/or Hip CPT Code: Final Report FULL RESULT: EXAM: Dexa Lumbar Spine, Dexa Forearm DATE: 01/21/2020 11:56 AM CLINICAL HISTORY: Follow-up osteopenia. Postmenopausal female. TECHNIQUE: Dual energy x-ray absorptiometry (DXA) was performed on a [employer] System. Regions measured are the AP Spine and left forearm. Patient has bilateral hip replacements. COMPARISON: 06/27/2017. In accordance with the International Society for Clinical Densitometry (ISCD) guidelines, data from previous exams may be reanalyzed using current recommendations and techniques. This is done to allow a more accurate basis for comparison with the current study. FINDINGS: The data for the lumbar spine is as follows: BMD (g/cm/cm) T-SCORE Z-SCORE REGION L1 0.869 -2.2 -0.2 L2 0.934 -2.2 -0.2 L3 0.976 -1.9 0.1 L4 1.118 -0.7 1.3 TOTAL 0.988 -1.6 0.4 NOTE: All evaluable vertebrae are used for classification The data for the left forearm is as follows: BMD (g/cm/cm) T-SCORE Z-SCORE REGION 1/3 0.548 -3.7 -2.0 NOTE: The 33% radius of the nondominant forearm is used for classification. DXA RESULTS SUMMARY: Spine SCAN DATE AGE BMD CHANGE VS CHANGE VS PREVIOUS PREVIOUS % [birth year][age][birth year][age] 0.89 0.024 2.5 06/27/2017 [age] 0.964 * Denotes significant change at the 95% confidence level. Denotes dissimilar scan types or analysis methods. IMPRESSION: THE WHO CLASSIFICATION BASED ON THE INTERNATIONAL REFERENCE STANDARD IS OSTEOPOROSIS, REFERENCE LEFT FOREARM. THE FRACTURE RISK IS HIGH. RECOMMENDATION: Patients with diagnosis of osteoporosis or osteopenia should have regular bone mineral density assessment. For those eligible for Medicare, routine testing is allowed once every 2 years. Testing frequency can be increased for patients who have rapidly progressing disease or for those who are receiving medical therapy to restore bone mass. COMMENT: World Health Organization (WHO) definitions for osteoporosis and osteopenia: NORMAL BMD: T-score at -1.0 or higher, fracture risk is low OSTEOPENIA BMD: T-score between -1.0 and -2.5, fracture risk is increased. OSTEOPOROSIS BMD: T-score at -2.5 or lower, fracture risk is high. National Osteoporosis Foundation recommends: 1. Obtain adequate dietary calcium (at least 1200 mg per day) and vitamin D (400-800 international units per day). 2. Participate, as appropriate, in regular weightbearing and muscle-strengthening exercise. 3. Avoid tobacco use and reduce alcohol and caffeine intake. 4. For more detailed information see the website at www.NOF.org.
--- NOTE | 2020-01-22 10:24 | DEXA Report ---
Reason: BILAT. HIP REPLACEMENT Procedure Date: 01/21/2020 Accession Number: [id number] / [id number] Procedure: DEX - Dexa Forearm CPT Code: Final Report FULL RESULT: EXAM: Dexa Lumbar Spine, Dexa Forearm DATE: 01/21/2020 11:56 AM CLINICAL HISTORY: Follow-up osteopenia. Postmenopausal female. TECHNIQUE: Dual energy x-ray absorptiometry (DXA) was performed on a [employer] System. Regions measured are the AP Spine and left forearm. Patient has bilateral hip replacements. COMPARISON: 06/27/2017. In accordance with the International Society for Clinical Densitometry (ISCD) guidelines, data from previous exams may be reanalyzed using current recommendations and techniques. This is done to allow a more accurate basis for comparison with the current study. FINDINGS: The data for the lumbar spine is as follows: BMD (g/cm/cm) T-SCORE Z-SCORE REGION L1 0.869 -2.2 -0.2 L2 0.934 -2.2 -0.2 L3 0.976 -1.9 0.1 L4 1.118 -0.7 1.3 TOTAL 0.988 -1.6 0.4 NOTE: All evaluable vertebrae are used for classification The data for the left forearm is as follows: BMD (g/cm/cm) T-SCORE Z-SCORE REGION 1/3 0.548 -3.7 -2.0 NOTE: The 33% radius of the nondominant forearm is used for classification. DXA RESULTS SUMMARY: Spine SCAN DATE AGE BMD CHANGE VS CHANGE VS PREVIOUS PREVIOUS % [birth year][age][birth year]2020 69.8 0.988 0.024 2.5 06[birth year]27/2017 [age] 0.964 * Denotes significant change at the 95% confidence level. Denotes dissimilar scan types or analysis methods. IMPRESSION: THE WHO CLASSIFICATION BASED ON THE INTERNATIONAL REFERENCE STANDARD IS OSTEOPOROSIS, REFERENCE LEFT FOREARM. THE FRACTURE RISK IS HIGH. RECOMMENDATION: Patients with diagnosis of osteoporosis or osteopenia should have regular bone mineral density assessment. For those eligible for Medicare, routine testing is allowed once every 2 years. Testing frequency can be increased for patients who have rapidly progressing disease or for those who are receiving medical therapy to restore bone mass. COMMENT: World Health Organization (WHO) definitions for osteoporosis and osteopenia: NORMAL BMD: T-score at -1.0 or higher, fracture risk is low OSTEOPENIA BMD: T-score between -1.0 and -2.5, fracture risk is increased. OSTEOPOROSIS BMD: T-score at -2.5 or lower, fracture risk is high. National Osteoporosis Foundation recommends: 1. Obtain adequate dietary calcium (at least 1200 mg per day) and vitamin D (400-800 international units per day). 2. Participate, as appropriate, in regular weightbearing and muscle-strengthening exercise. 3. Avoid tobacco use and reduce alcohol and caffeine intake. 4. For more detailed information see the website at www.NOF.org.
== END 2020-01-21 11:36 | disposition home or self-care (01) ==
LOC: DI 11:35
PROVIDERS: ATTEND Family Medicine
DX: R06.02 Shortness of breath (principal); R94.31 Abnormal electrocardiogram [ECG] [EKG]; Z82.49 Family history of ischemic heart disease and other diseases of the circulatory system; M81.0 Age-related osteoporosis without current pathological fracture; Z87.891 Personal history of nicotine dependence; Z78.0 Asymptomatic menopausal state; Z96.643 Presence of artificial hip joint, bilateral
CPT/HCPCS: 77080; 77081; 78452; 93017; A9500; J2785

== ENCOUNTER 2020-04-21 12:28 | Outpatient (CLI) | payer MEDICARE ==
[2020-04-21 18:07] LABS: BASOPHILS # (AUTO) 0.1 10^3/uL (0.0-0.1); BASOPHILS % (AUTO) 0.8 %; EOSINOPHILS # (AUTO) 0.3 10^3/uL (0.0-0.7); EOSINOPHILS % (AUTO) 3.1 %; HGB - HEMOGLOBIN 9.4 g/dL (12.0-16.0); LYMPHOCYTES # (AUTO) 1.9 10^3/uL (1.5-3.5); LYMPHOCYTES % (AUTO) 22.8 %; MEAN CORPUSCULAR HEMOGLOBIN 25.4 pg (27.0-31.0); MEAN CORPUSCULAR HGB CONC 30.4 g/dL (32.0-36.0); MEAN CORPUSCULAR VOLUME 83.5 fL (81.0-99.0); MEAN PLATELET VOLUME 9.4 fL (7.9-10.8); MONOCYTES # (AUTO) 0.8 10^3/uL (0.0-1.0); MONOCYTES % (AUTO) 8.8 %; NEUTROPHILS # (AUTO) 5.5 10^3/uL (1.5-6.6); NEUTROPHILS % (AUTO) 64.1 %; PLT - PLATELET COUNT 538 10^3/uL (130-450); RED CELL DISTRIBUTION WIDTH 18.1 % (12.0-15.0); WHITE BLOOD COUNT 8.5 x10^3/uL (4.8-10.8)
[2020-04-21 18:16] LABS: INR 1.1 (0.8-1.2); PT - PROTHROMBIN TIME 12.8 secs (9.9-12.6)
[2020-04-21 18:40] LABS: ALBUMIN 4.2 g/dL (3.2-5.5); ALBUMIN/GLOBULIN RATIO 1.1 (1.0-2.2); BILIRUBIN,TOTAL 0.5 mg/dL (0.2-1.0); CALCIUM 9.5 mg/dL (8.5-10.3); CREATININE 1.3 mg/dL (0.4-1.0); TOTAL PROTEIN 7.9 g/dL (6.7-8.2)
[2020-04-21 18:54] LABS: FERRITIN 16.1 ng/mL (11.0-306.8)
[2020-04-21 19:18] LABS: % IRON SATURATION 3 % (20-50); IRON 19 ug/dL (28-170); TOTAL IRON BINDING CAPACITY 567 ug/dL (250-450); TRANSFERRIN 405 mg/dL (192-382)
== END 2020-04-21 23:59 ==
LOC: LAB.WCP 12:28
PROVIDERS: ATTEND Family Medicine
DX: D64.9 Anemia, unspecified (principal); R06.09 Other forms of dyspnea; I25.119 Atherosclerotic heart disease of native coronary artery with unspecified angina pectoris; I50.22 Chronic systolic (congestive) heart failure; I25.5 Ischemic cardiomyopathy
CPT/HCPCS: 36415; 80053; 82607; 82728; 82746; 83540; 84466; 85025; 85610

== ENCOUNTER 2020-04-29 08:00 | Outpatient (CLI) | payer MEDICARE | END 2020-04-29 23:59 | disposition home or self-care (01) | LOC: LAB.WCP 08:00 | PROVIDERS: ATTEND Family Medicine | DX: Z53.9 Procedure and treatment not carried out, unspecified reason (principal) ==

== ENCOUNTER 2020-09-22 12:50 | Outpatient (CLI) | payer MEDICARE | END 2020-09-22 12:51 | disposition home or self-care (01) | LOC: COV 12:50 | PROVIDERS: ATTEND Family Medicine | DX: R50.9 Fever, unspecified (principal); R05 Cough; R06.02 Shortness of breath; R09.81 Nasal congestion; Z20.828 Contact with and (suspected) exposure to other viral communicable diseases ==

== ENCOUNTER 2020-10-02 11:39 | Outpatient (CLI) | payer MEDICARE ==
--- NOTE | 2020-10-02 12:52 | CT Report ---
PROCEDURE: Sinuses INDICATIONS: CHRONIC SINUSITIS TECHNIQUE: Noncontrast 3.0 mm axial images acquired from the frontal sinuses to the mid-sella, with coronal and sagittal reformats. For radiation dose reduction, the following was used: automated exposure control , adjustment of mA and/or kV according to patient size. COMPARISON: None. FINDINGS: Image quality: Excellent. Maxillary Sinuses: Right inferior maxillary sinus mucosal thickening measuring up to 6 mm. There is a lso mucosal thickening along the roof of the maxillary sinus on the right extending into and mildly n arrowing the ostium and infundibulum. The ostium is narrowed to a minimum diameter of 1-2 mm. No para nasal sinus fluid level. There is thickening and osteitis of the inferior right maxillary sinus hermosillo , suggestive of chronic/recurrent sinusitis. Ethmoid Air Cells: No bony remodeling or destruction. Sinuses are clear. Sphenoid Sinuses: No bony remodeling or destruction. Sinuses are clear. Frontal Sinuses: No bony remodeling or destruction. Sinuses are clear. Ostiomeatal Complexes: Ostiomeatal complexes are patent. No Rafia cells. Miscellaneous: Visualized intra-orbital contents are normal. No shimon bullosa. Moderate nasal sept al deviation to the left with spurring at the level of the inferior nasal turbinate. IMPRESSION: Moderate mucosal thickening in the inferior right maxillary sinus with bony features of chronic/recur rent sinusitis. Moderate leftward deviation of the nasal septum with spurring. Reviewed by: Kevin Freeman MD on 10/02/2020 12:51 PM PST Approved by: Kevin Freeman MD on 10/02/2020 12:51 PM PST Station ID: [id number]
== END 2020-10-02 11:40 | disposition home or self-care (01) ==
LOC: DI 11:39
PROVIDERS: ATTEND Family Medicine
DX: J32.0 Chronic maxillary sinusitis (principal); J34.2 Deviated nasal septum
CPT/HCPCS: 70486

== ENCOUNTER 2021-09-27 23:16 | Outpatient (CLI) | payer MEDICARE | END 2021-09-27 23:17 | disposition critical access hospital (66) | LOC: EMS 23:16 | DX: R41.0 Disorientation, unspecified (principal); R63.8 Other symptoms and signs concerning food and fluid intake | CPT/HCPCS: A0425; A0429 ==

== ENCOUNTER 2021-09-27 23:46 | Observation (INO) | payer MEDICARE ==
[2021-09-28] MEDS ORDERED: SODIUM CHLORIDE 0.9% 1,000 ML IV STA (00:03)
--- NOTE | 2021-09-28 00:06 | ED Physician Documentation ---
History of Present Illness - Stated complaint Stated Complaint: AMS - Chief complaint Chief Complaint: Neuro - History obtained from History obtained from: Patient, Family, EMS - History of Present Illness Timing: Today - Additonal information Additional information: 71-year-old female with history of hiatal hernia that has begun to give her more and more symptoms was attended today by her son who felt that she was a bit slow on her vocalizations and asked to have her evaluated in the emergency department. The patient indicates that she is preparing to have surgery for this hiatal hernia and she has had some issue with pain when she eats and has had to reduce the amount that she eats dramatically she is lost about 10 pounds in the last 3 months. She is eating once per day and she has had a decreased fluid intake as well. She notes urinary frequency she thinks is been present for months. The patient herself did not note any abnormality until it was pointed out by her son and she otherwise feels well. Review of Systems Constitutional: denies: Fever Eyes: denies: Decreased vision Ears: denies: Ear pain Nose: denies: Rhinorrhea / runny nose, Congestion, Foreign Body Throat: denies: Sore throat Cardiac: denies: Chest pain / pressure, Palpitations Respiratory: denies: Dyspnea, Cough, Wheezing GI: reports: Abdominal Pain (with eating). denies: Nausea, Vomiting, Constipation, Diarrhea : reports: Frequency. denies: Dysuria Skin: denies: Rash Musculoskeletal: denies: Neck pain, Back pain, Extremity pain Neurologic: reports: Difficulty speaking (noted by the son). denies: Generalized weakness, Focal weakness, Numbness PD PAST MEDICAL HISTORY - Past Medical History Cardiovascular: None Respiratory: None Endocrine/Autoimmune: None GI: GERD, Colon polyps : None HEENT: None Psych: None Musculoskeletal: Osteoarthritis, Osteoporosis Derm: None - Past Surgical History General: Colonoscopy Ortho: Hip replacement, Knee replacement HEENT: Cataracts - Present Medications Home Medications: Ambulatory Orders Medication Instructions Recorded Confirmed Calcium Citrate [Calcitrate] 600 mg PO DAILY 12/13/13 06/27/17 HYDROcod/ACETAM 5/325 [Vicodin 1 each PO TID 12/13/13 06/27/17 5/325] Cyanocobalamin (Vitamin B-12) 500 mcg PO DAILY 04/04/17 06/27/17 [Vitamin B-12 (100mcg tab)] raNITIdine [Zantac] 150 mg ORAL DAILY 06/23/17 06/27/17 Biotin 5,000 mcg PO DAILY 06/27/17 06/27/17 Cholecalciferol [Vitamin D3] 5,000 unit PO DAILY 06/27/17 06/27/17 Glucosam/Chondr-Msm6/Manganese 2 cap PO DAILY 06/27/17 06/27/17 [Glucosamine-Chondroitin Sftgl] Lactobacillus Acidophilus 1 each PO DAILY 06/27/17 06/27/17 [Probiotic Acidophilus] Multivitamin [Multiple Vitamins] 1 each PO DAILY 06/27/17 06/27/17 Vitamin E (Dl,Tocopheryl Acet) 4,000 unit PO DAILY 06/27/17 06/27/17 [Vitamin E] Hydrocodone/Acetaminophen 1 - 2 each PO Q6H PRN #14 tablet 11/28/19 [Hydrocodon-Acetaminophen 5-325] - Allergies Allergies/Adverse Reactions: Allergies Allergy/AdvReac Type Severity Reaction Status Date / Time povidone-iodine Allergy Intermediate swelling Verified 09/27/21 23:56 [From Betadine] soap * [From Betadine] Allergy Intermediate swelling Verified 09/27/21 23:56 levofloxacin [From Levaquin] Allergy Unknown Verified 09/27/21 23:56 simvastatin [From Zocor] Allergy Unknown Verified 09/27/21 23:56 - Social History Does the pt smoke?: No Smoking Status: Never smoker PD ED PE NORMAL - Vitals Vital signs reviewed: Yes (normal ) - General General: Alert and oriented X 3, No acute distress, Well developed/nourished, Other (mild speech latency noted ) - HEENT HEENT: Atraumatic, PERRL, EOMI - Neck Neck: Supple, no meningeal sign, No bony TTP - Cardiac Cardiac: RRR, No murmur - Respiratory Respiratory: No respiratory distress, Clear bilaterally - Abdomen Abdomen: Normal bowel sounds, Soft, Non tender, Non distended, No organomegaly - Back Back: No CVA TTP, No spinal TTP - Derm Derm: Normal color, Warm and dry, No rash, Other (skin tents easily ) - Extremities Extremities: No deformity, No edema - Neuro Neuro: Alert and oriented X 3, 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, No motor deficit, No sensory deficit, Other (speech latency is less than 2 seconds) Eye Opening: Spontaneous Motor: Obeys Commands Verbal: Oriented GCS Score: 15 - Psych Psych: Normal mood, Normal affect Results - Vitals Vitals: Vital Signs - 24 hr 09/27/21 09/28/21 09/28/21 23:40 00:03 01:00 Temperature 35.8 C L Heart Rate 84 78 72 Respiratory 17 16 18 Rate Blood Pressure 113/61 90/49 L 99/56 L O2 Saturation 99 96 99 Oxygen O2 Source Nasal cannula Oxygen Flow Rate 2 - Labs Labs: Laboratory Tests 09/28/21 09/28/21 09/28/21 00:18 00:18 00:18 WBC 7.1 RBC 3.01 L Hgb 8.4 L Hct 26.7 L MCV 88.7 MCH 27.9 MCHC 31.5 L RDW 16.1 H Plt Count 589 H MPV 8.3 Neut # (Auto) 3.3 Lymph # (Auto) 2.6 Wetzel # (Auto) 0.7 Eos # (Auto) 0.5 Baso # (Auto) 0.0 Absolute Nucleated RBC 0.00 Nucleated RBC % 0.0 Sodium 138 Potassium 3.6 Chloride 102 Carbon Dioxide 23 Anion Gap 13.0 BUN 9 Creatinine 0.6 Estimated GFR (MDRD) 99 Glucose 85 Lactic Acid 3.6 H* Calcium 8.9 Total Bilirubin 0.4 AST 38 ALT 15 Alkaline Phosphatase 77 Total Protein 7.7 Albumin 3.6 Globulin 4.1 Albumin/Globulin Ratio 0.9 L Lipase 51 Urine Color Urine Clarity Urine pH Ur Specific [place] Urine Protein Urine Glucose (UA) Urine Ketones Urine Occult Blood Urine Nitrite Urine Bilirubin Urine Urobilinogen Ur Leukocyte Esterase Urine RBC Urine WBC Ur Squamous Epith Cells Urine Bacteria Ur Microscopic Review Urine Culture Comments Nasal Adenovirus (PCR) Nasal B. parapertussis DNA (PCR) Nasal Coronavir 229E PCR Nasal Coronavir HKU1 PCR Nasal Coronavir NL63 PCR Nasal Coronavir OC43 PCR Nasal Enterovir/Rhinovir PCR Nasal Influenza B PCR Nasal Influenza A PCR Nasal Parainfluen 1 PCR Nasal Parainfluen 2 PCR Nasal Parainfluen 3 PCR Nasal Parainfluen 4 PCR Nasal RSV (PCR) Nasal B.pertussis DNA PCR Nasal C.pneumoniae (PCR) Paresh Human Metapneumo PCR Nasal M.pneumoniae (PCR) Nasal SARS-CoV-2 (PCR) Ethyl Alcohol 09/28/21 09/28/21 09/28/21 00:18 00:30 01:30 WBC RBC Hgb Hct MCV MCH MCHC RDW Plt Count MPV Neut # (Auto) Lymph # (Auto) Wetzel # (Auto) Eos # (Auto) Baso # (Auto) Absolute Nucleated RBC Nucleated RBC % Sodium Potassium Chloride Carbon Dioxide Anion Gap BUN Creatinine Estimated GFR (MDRD) Glucose Lactic Acid Calcium Total Bilirubin AST ALT Alkaline Phosphatase Total Protein Albumin Globulin Albumin/Globulin Ratio Lipase Urine Color YELLOW Urine Clarity SL. CLOUDY Urine pH 5.5 Ur Specific [place] <=1.005 Urine Protein NEGATIVE Urine Glucose (UA) NEGATIVE Urine Ketones NEGATIVE Urine Occult Blood NEGATIVE Urine Nitrite POSITIVE H Urine Bilirubin NEGATIVE Urine Urobilinogen 0.2 (NORMAL) Ur Leukocyte Esterase SMALL H Urine RBC None Seen Urine WBC 11-25 H Ur Squamous Epith Cells RARE Squamous Urine Bacteria Many H Ur Microscopic Review INDICATED Urine Culture Comments INDICATED Nasal Adenovirus (PCR) NOT DETECTED Nasal B. parapertussis DNA (PCR) NOT DETECTED Nasal Coronavir 229E PCR NOT DETECTED Nasal Coronavir HKU1 PCR NOT DETECTED Nasal Coronavir NL63 PCR NOT DETECTED Nasal Coronavir OC43 PCR NOT DETECTED Nasal Enterovir/Rhinovir PCR NOT DETECTED Nasal Influenza B PCR NOT DETECTED Nasal Influenza A PCR NOT DETECTED Nasal Parainfluen 1 PCR NOT DETECTED Nasal Parainfluen 2 PCR NOT DETECTED Nasal Parainfluen 3 PCR NOT DETECTED Nasal Parainfluen 4 PCR NOT DETECTED Nasal RSV (PCR) NOT DETECTED Nasal B.pertussis DNA PCR NOT DETECTED Nasal C.pneumoniae (PCR) NOT DETECTED Paresh Human Metapneumo PCR NOT DETECTED Nasal M.pneumoniae (PCR) NOT DETECTED Nasal SARS-CoV-2 (PCR) NOT DETECTED Ethyl Alcohol < 5.0 - Rads (name of study) CT head Radiology: Prelim report reviewed (Impression: 1. No CT evidence of acute intracranial process. Age-appropriate exam with mild changes of chronic microvascular ischemia.), EMP read indepedently, See rad report Procedures - IVC sono (time) 0002 Bedside IVC sono: IVC measures (cm) (0.9), IVC collapsed c insp (cm) (complete), Dehydration (est 1-2 liter deficit) PD MEDICAL DECISION MAKING - ED course Complexity details: reviewed old records, reviewed results, re-evaluated patient, considered differential, d/w patient, d/w family ED course: 71-year-old fusion female with a history of symptomatic hiatal hernia and iron deficiency anemia as well as coronary artery disease and aortic stenosis has been having some failing health in the past several weeks and her son has noted some slurring of her speech and asked to have her evaluated. The patient has had prior incident with infection and today she has urinary tract infection she has elevated lactate and a soft blood pressure. On my initial evaluation the pa tal was able to interact with me and did a fair job at answering questions appropriately without slurring her speech. It did become evident that if she attempted to join into a conversation she had some trouble with speech latency and complete formation. Our hospitalist was kind enough to come to the emergency department to evaluate the patient and she will be admitted to observation for suspected sepsis. Departure - Departure Disposition: ED Place in Observation Clinical Impression: Urinary tract infection Qualifiers: Urinary tract infection type: acute cystitis Hematuria presence: without hematuria Qualified Code(s): N30.00 - Acute cystitis without hematuria Altered mental status Qualifiers: Altered mental status type: disorientation Qualified Code(s): R41.0 - Disorientation, unspecified Discharge Date/Time: 09/28/21 02:58
[2021-09-28 00:23] LABS: BASOPHILS % (AUTO) 0.6 %; EOSINOPHILS # (AUTO) 0.5 10^3/uL (0.0-0.7); HCT - HEMATOCRIT 26.7 % (37.0-47.0); HGB - HEMOGLOBIN 8.4 g/dL (12.0-16.0); LYMPHOCYTES # (AUTO) 2.6 10^3/uL (1.5-3.5); LYMPHOCYTES % (AUTO) 36.1 %; MEAN CORPUSCULAR HEMOGLOBIN 27.9 pg (27.0-31.0); MEAN CORPUSCULAR HGB CONC 31.5 g/dL (32.0-36.0); MEAN CORPUSCULAR VOLUME 88.7 fL (81.0-99.0); MEAN PLATELET VOLUME 8.3 fL (7.9-10.8); MONOCYTES # (AUTO) 0.7 10^3/uL (0.0-1.0); MONOCYTES % (AUTO) 9.6 %; NEUTROPHILS # (AUTO) 3.3 10^3/uL (1.5-6.6); NEUTROPHILS % (AUTO) 46.4 %; PLT - PLATELET COUNT 589 10^3/uL (130-450); RED BLOOD COUNT 3.01 10^6/uL (4.20-5.40); RED CELL DISTRIBUTION WIDTH 16.1 % (12.0-15.0); WHITE BLOOD COUNT 7.1 x10^3/uL (4.8-10.8)
[2021-09-28 00:37] LABS: ALBUMIN 3.6 g/dL (3.2-5.5); ALBUMIN/GLOBULIN RATIO 0.9 (1.0-2.2); BILIRUBIN,TOTAL 0.4 mg/dL (0.2-1.0); CALCIUM 8.9 mg/dL (8.5-10.3); CREATININE 0.6 mg/dL (0.4-1.0); POTASSIUM 3.6 mmol/L (3.5-5.0); TOTAL PROTEIN 7.7 g/dL (6.7-8.2)
[2021-09-28 00:44] LABS: BILIRUBIN,URINE NEGATIVE (NEGATIVE); CLARITY,URINE SL. CLOUDY (CLEAR); GLUCOSE, URINE (UA) NEGATIVE (NEGATIVE); KETONES,URINE (UA) NEGATIVE (NEGATIVE); LEUKOCYTE ESTERASE, URINE SMALL (NEGATIVE); NITRITE,URINE POSITIVE (NEGATIVE); OCCULT BLOOD,URINE NEGATIVE (NEGATIVE); PH,URINE 5.5 PH (5.0-7.5); PROTEIN,URINE NEGATIVE (NEGATIVE); UROBILINOGEN,URINE 0.2 (NORMAL) E.U./dL (NORMAL)
[2021-09-28 00:50] LABS: RBC,URINE None Seen /HPF (0-5); SQUAMOUS EPITHELIAL CELL,UR RARE Squamous (<= Few)
[2021-09-28 00:51] LABS: BACTERIA,URINE Many /HPF (None Seen)
[2021-09-28] MEDS ORDERED: cefTRIAXone 1 GM in SODIUM CHLORIDE 0.9% MINIBAG 100 ML IV STA (00:54)
[2021-09-28] MEDS ORDERED: cefTRIAXone 1 GM VIAL ONE (01:16)
[2021-09-28] MEDS ORDERED: ONDANSETRON ODT 4 MG TABLET TL PRN (01:32)
[2021-09-28] MEDS ORDERED: ACETAMINOPHEN 325 MG TABLET PO PRN (01:32)
[2021-09-28] MEDS ORDERED: oxyCODONE 5 MG TABLET PO PRN (01:32)
[2021-09-28] MEDS ORDERED: SODIUM CHLORIDE FLUSH 0.9% 10 ML SYRINGE IVP PRN (01:32)
[2021-09-28] MEDS ORDERED: ONDANSETRON 4 MG/2 ML VIAL IVP PRN (01:32)
[2021-09-28] MEDS ORDERED: LACTATED RINGERS 1,000 ML IV SCH (02:00)
--- NOTE | 2021-09-28 02:13 | CT Report ---
PROCEDURE: HEAD WO INDICATIONS: altered LOC TECHNIQUE: Noncontrast 4.5 mm thick angled axial sections acquired from the foramen magnum to the vertex. For r adiation dose reduction, the following was used: automated exposure control, adjustment of mA and/or kV according to patient size. COMPARISON: None. FINDINGS: Image quality: Excellent. CSF spaces: Basal cisterns are patent. No extra-axial fluid collections. Ventricles are normal in size and shape. Brain: No midline shift. No intracranial masses or hemorrhage. Harding-white matter interface is norm al. Cerebral cortical volume loss for age. Mild hypodensity in the periventricular and subcortical w robyn matter. Skull and face: Calvarium and visualized facial bones are intact, without suspicious lesions. Sinuses: Mucosal thickening at the base of the right maxillary sinus. Visualized sinuses and mastoid s are otherwise clear. IMPRESSION: 1. No CT evidence of acute intracranial process. 2. Age-appropriate exam with mild changes of chronic microvascular ischemia.. Reviewed by: Missy Akhtar MD on 09/28/2021 2:12 AM PST Approved by: Missy Akhtar MD on 09/28/2021 2:12 AM PST Station ID: [id number]
[2021-09-28 02:34] LABS: B. PARAPERTUSSIS- RESP PCR PAN NOT DETECTED; B. PERTUSSIS- RESP PCR PANEL NOT DETECTED; C. PNEUMONIAE- RESP PCR PANEL NOT DETECTED; CORONAVIRUS 229E-RESP PCR NOT DETECTED; CORONAVIRUS HKU1-RESP PCR NOT DETECTED; CORONAVIRUS NL63-RESP PCR NOT DETECTED; CORONAVIRUS OC43-RESP PCR NOT DETECTED; HUMAN METAPNEUMOVIRUS NOT DETECTED; INFLUENZA A- RESP PCR PANEL NOT DETECTED; INFLUENZA B - RESP PCR PANEL NOT DETECTED; M. PNEUMONIAE- RESP PCR PANEL NOT DETECTED; PARAINFLUENZA VIRUS 1 NOT DETECTED; PARAINFLUENZA VIRUS 2 NOT DETECTED; PARAINFLUENZA VIRUS 3 NOT DETECTED; PARAINFLUENZA VIRUS 4 NOT DETECTED; RHINOVIRUS/ENTEROVIRUS NOT DETECTED; RSV- RESP PCR PANEL NOT DETECTED; SARS-CoV-2 -RESP PCR PANEL NOT DETECTED
--- NOTE | 2021-09-28 02:47 | HISTORY & PHYSICAL EXAMINATION ---
Chief Complaint - Chief Complaint Chief Complaint: Altered mental status History of Present Illness - Admitted From Admitted From:: [facility] - History of Present Illness HPI Comment/Other: Chel is a 71 year old female with a history of CAD, ischemic cardiomyopathy with reserved EF, GERD, hiatal hernia, dysphagia and anemia who presents with her son for altered mental status. Her son felt she was more confused and slurring her speech over the phone and decided to drive to [facility] from [place], [place] today. When he arrived at his mother's house, he found her conscious on the bathroom ground and decided to bring her to ED for confusion. She reports eating once a day and decreased fluid intake. She has an extensive cardiovascular history including coronary artery disease, ischemic cardiomyopathy with reserved EF, aortic stenosis and hyperlipidemia. She has a total RCA occlusion, left to right collateralization, and 60 - 70% LAD occlusion. She underwent LAD stent placement in 2019. Cardiac MRI from 02/2020 shows an EF of 48% with basilar inferior dyskinesis. Echo from 03/2020 showed aortic stenosis with reserved EF. A PTCA from 04/2020 showed purvi akinesis or dyskinesis. She also had an abnormal stress test. She takes 81mg Aspirin, clopidogrel, carvediol, isosorbide mononitrate, and spironolactone. She is suffering from a symptomatic hiatal hernia that she is supposed to have surgically corrected in October 2021. She attributes her lack of eating or drinking to this hiatal hernia and reports a 10 pound weight loss in the last 3 months. She also suffers from gastric ulcers, dysphagia and GERD which she takes pantoprazole for. She also has chronic iron deficiency anemia which she receives iron transfusions for. This was well controlled until recently. She underwent an EGD to assess the state of her gastric ulcers and to see if this is the source of the recurrent anemia. There was also a solitary lung nodule found on imaging in 2016 with the most recent chest CT in 2018 and chest x-ray in 2019 without change. She quit smoking in 2013. She does report a recent 10 pound weight loss and productive chronic cough without a history of pulmonary disease. She has a history of alcohol abuse and was sober for approximately 20 years, however, the son found an empty liquor bottle and wine bottle today leading him to suspect she is drinking again. She also has a history of depression and has been more withdrawn and socially isolated. She reports not taking any of her medications in the last 2 weeks because "she just didn't feel like it". History - Past Medical History Cardiovascular: reports: Congestive heart failure (with reserved EF), High cholesterol, Coronary artery disease, Murmur (Aortic stenosis ) Respiratory: reports: None, Other (Pulmonary nodule) Neuro: reports: None Endocrine/Autoimmune: reports: None GI: reports: GERD, Hiatal hernia, Colon polyps, Other (dysphagia ) : reports: None HEENT: reports: None Psych: reports: None Musculoskeletal: reports: Osteoarthritis, Osteoporosis Derm: reports: None MRSA Hx?: No Other Past Medical History: Iron deficiency anemia - Past Surgical History General: reports: Colonoscopy Ortho: reports: Hip replacement, Knee replacement Cardiovascular: reports: Coronary stent HEENT: reports: Cataracts - Family & Social History Family History: Mother: , Father: Family History Comment/Other: Has 1 adult son who lives in [place], [place] who is healthy. Son is planning on having patient come live with him in [place], [place]. Living arrangement: At home Living Situation: Alone Social History Notes: 34 pack year smoking history, quit in 2013. - Substance History Use: Uses substance without health or social issues: NONE Abuse: Recurrent use of substance despite neg consequences: NONE Dependence: Experiences withdrawal or developed tolerances: NONE - POLST Patient has POLST: No POLST Status: Full Code Meds/Allgy - Home Medications Home Medications: Ambulatory Orders Medication Instructions Recorded Confirmed Aspirin [Aspirin EC] 81 mg PO DAILY 09/28/21 09/28/21 Carvedilol [Coreg] 6.25 mg PO BID 09/28/21 09/28/21 Cholecalciferol (Vitamin D3) 125 mcg PO DAILY 09/28/21 09/28/21 [Vitamin D3] Clopidogrel [Plavix] 75 mg PO DAILY 09/28/21 09/28/21 Ferrous Sulfate 325 mg PO DAILYWM 09/28/21 09/28/21 Multivitamin [Theragran] 1 tab PO DAILY 09/28/21 09/28/21 Nitroglycerin [Nitrostat] 0.4 mg SL Q5MIN PRN 09/28/21 09/28/21 Pantoprazole [Protonix] 40 mg PO BIDAC 09/28/21 09/28/21 Rosuvastatin Calcium [Crestor] 20 mg PO QPM 09/28/21 09/28/21 Spironolactone [Aldactone] 12.5 mg PO DAILY 09/28/21 09/28/21 - Allergies Allergies/Adverse Reactions: Allergies Allergy/AdvReac Type Severity Reaction Status Date / Time povidone-iodine Allergy Intermediate swelling Verified 09/27/21 23:56 [From Betadine] soap * [From Betadine] Allergy Intermediate swelling Verified 09/27/21 23:56 levofloxacin [From Levaquin] Allergy Unknown Verified 09/27/21 23:56 simvastatin [From Zocor] Allergy Unknown Verified 09/27/21 23:56 Review of Systems - Constitutional Constitutional: reports: Weight loss. denies: Fever, Chills - Eyes Eyes: denies: Blurred vision, Vision loss, Dipolpia - Ears, Nose & Throat Ears, Nose & Throat: reports: Postnasal drainage. denies: Ear pain, Nasal discharge - Cardiovascular Cariovascular: denies: Palpitations, Chest pain, Orthopnea - Respiratory Respiratory: reports: Cough, Sputum production (yellow sputum) - Gastrointestinal Gastrointestinal: reports: Abdominal pain, Poor appetite. denies: Abdominal distention, Constipation, Diarrhea, Nausea, Vomiting - Genitourinary Genitourinary: reports: Frequency. denies: Dysuria - Musculoskeletal Musculoskeletal: denies: Muscle pain, Back pain, Stiffness - Integumentary Integumentary: denies: Rash, Pruritis - Neurological Neurological: denies: General weakness, Focal weakness, Numbness - Endocrine Endocrine: denies: Polyuria, Polydypsia - Hematologic/Lymphatic Hematologic/Lymphatic: reports: Anemia. denies: Lymphadenopathy - All Other Systems All Other Systems: reports: Reviewed and negative Prior Level of Functionality: Lives alone, walks without assistance Exam - Vital Signs Reviewed Vital Signs: Yes Vital Signs: Vital Signs x48h Temp Pulse Resp BP Pulse Ox 09/28/21 01:52 84 18 111/61 100 09/28/21 01:00 72 18 99/56 L 99 09/28/21 00:03 78 16 90/49 L 96 09/27/21 23:40 35.8 C L 84 17 113/61 99 - Physical Exam General Appearance: positive: No acute distress Eyes Bilateral: positive: Normal inspection, PERRL, EOMI ENT: positive: Dry mucous membranes. negative: Purulent nasal drainage Neck: positive: Nml inspection, No JVD Respiratory: positive: No respiratory distress, Breath sounds nml Cardiovascular: positive: Systolic murmur Peripheral Pulses: positive: 1+ Abdomen: positive: Non-tender, No organomegaly, No distention Skin: positive: Color nml, Warm Extremities: positive: Non-tender, Nml appearance, No pedal edema Neurologic/Psychiatric: positive: Oriented x3, CN's nml (2-12). negative: Sensory loss Sepsis Event Note (H) - Evaluation Current Stage of Sepsis: Ruled out Conclusion/Plan - Problem List (1) Altered mental status Conclusion/Plan: Patient's son reports history of alcohol abuse with a 20 year sober period, however, today he found an empty liquor bottle and wine bottle, leading him to suspect she may be drinking again. This may be the reason for her recent confusion and speech slurring. We will obtain a tox screen and alcohol level. She has not taken any of her medications in the last 2 weeks so it is unlikely that a medication may be causing her altered state. She was found to have a UTI in the ED but had no signs of systemic illness and was started on Rocephin. She is afebrile without neck stiffness or pain, making meningitis or encephalitis unlikely. We will obtain a CT of the head to rule out CVA or tumor. There was no witnessed fall or reported injury however because she was found on the ground by her son, there is a concern for a potential brain bleed, which we will see on CT. Her altered state may also be due to hypovolemia/dehydration due to not eating or drinking very much this past week. We will plan to give her IV fluids and monitor. Qualifiers: Altered mental status type: disorientation Qualified Code(s): R41.0 - Disorientation, unspecified (2) Lactic acidosis Conclusion/Plan: Lactate was found to be elevated in the ED. This may be due to recent alcohol use or dehydration as there is no evidence of metabolic derangement on labs. She doesn't meet sepsis criteria and she is not on metformin. We will continue to give her IV fluids and monitor. (3) Urinary tract infection Conclusion/Plan: UA was positive for WBC, LE and nitrites. Started on Rocephin and will continue while hospitalized. If chest CT clear, will switch her to PO nitrofurantoin at discharge. If chest CT positive, we will start her on PO Bactrim at discharge. Will continue to monitor labs for signs of systemic infection. Qualifiers: Urinary tract infection type: acute cystitis Hematuria presence: without hematuria Qualified Code(s): N30.00 - Acute cystitis without hematuria (4) Dehydration Conclusion/Plan: Patient reports not eating or drinking much in the last week. On exam her mucous membranes are dry. She has decreased IVC and skin tenting, also indicating dehydration. Plan is to continue IV fluids and monitor. (5) Ischemic cardiomyopathy Conclusion/Plan: No signs of congestive heart failure and no cardiac symptoms. Patient reports not taking any medications in the last 2 weeks including all of her cardiac medications. Our plan is the give her 2L of IV fluids instead of 3L due to risk of congestive heart failure and volume overload. Plan is to continue her home medications and continue to monitor. (6) Depression Conclusion/Plan: Her son believes she may be drinking again after nearly 20 years sober. She is also more withdrawn, not eating or drinking, not taking her medications as prescribed and has lost 10 pounds in 3 months. She is faced with potentially having to move in with her adult son and when asked why she stopped taking her medications, she reported she "just didn't feel like it". We will consult either psych or social work to assess. (7) Weight loss Conclusion/Plan: Patient reports a 10 pound weight loss over the last 3 months and attributes this weight loss to her symptomatic hiatal hernia. It could also be related to her depression or pulmonary nodule. We will get a CT of the chest to rule out potential malignancy or other pulmonary disease. (8) Iron deficiency anemia Conclusion/Plan: Patient has a long standing history of iron deficiency anemia which she receives iron transfusions for. She also takes ferrous sulfate but has not taken it in the last 2 weeks. She does not qualify for blood transfusion at this time. She is still taking 81mg of Aspirin, which could be exacerbating her gastric ulcer disease and causing blood loss. EGD from 08/2021 did not show any source of bleeding. Plan is to stop Aspirin and continue Plavix and continue to monitor for signs of worsening anemia and transfuse if needed. - Lab Results Lab results reviewed: Yes Fish Bones: 09/28/21 05:10 09/28/21 08:41 Core Measures - Anticipated LOS I expect patient to be DC'd or transferred within 96 hours.: Yes - DVT/VTE - Prophylaxis VTE/DVT Device ordered at admit?: Yes
[2021-09-28 05:21] LABS: BASOPHILS # (AUTO) 0.1 10^3/uL (0.0-0.1); BASOPHILS % (AUTO) 0.4 %; EOSINOPHILS # (AUTO) 0.5 10^3/uL (0.0-0.7); EOSINOPHILS % (AUTO) 3.3 %; HCT - HEMATOCRIT 26.4 % (37.0-47.0); HGB - HEMOGLOBIN 8.1 g/dL (12.0-16.0); LYMPHOCYTES % (AUTO) 13.2 %; MEAN CORPUSCULAR HEMOGLOBIN 27.5 pg (27.0-31.0); MEAN CORPUSCULAR HGB CONC 30.7 g/dL (32.0-36.0); MEAN CORPUSCULAR VOLUME 89.5 fL (81.0-99.0); MEAN PLATELET VOLUME 8.4 fL (7.9-10.8); MONOCYTES # (AUTO) 0.9 10^3/uL (0.0-1.0); MONOCYTES % (AUTO) 6.1 %; NEUTROPHILS # (AUTO) 11.5 10^3/uL (1.5-6.6); NEUTROPHILS % (AUTO) 76.6 %; PLT - PLATELET COUNT 532 10^3/uL (130-450); RED BLOOD COUNT 2.95 10^6/uL (4.20-5.40); RED CELL DISTRIBUTION WIDTH 16.5 % (12.0-15.0)
[2021-09-28] MEDS: PANTOPRAZOLE 40 MG TABLET PO SCH (06:43)
[2021-09-28] MEDS ORDERED: IOVERSOL 320 100 ML VIAL IVP ONE ×2 (06:58→08:36)
[2021-09-28] MEDS ORDERED: LACTATED RINGERS 1,000 ML IV ONE (07:37)
--- NOTE | 2021-09-28 08:38 | CT Report ---
PROCEDURE: CHEST W INDICATIONS: Hx of hiatal hernia, abnormal weight loss x 3 wks. TECHNIQUE: After the administration of intravenous contrast, 1 mm axial images were acquired from the pulmonary apices through the posterior costophrenic angles. Axial 5 mm soft tissue kernel reconstructions were performed as well as 8 mm axial MIP and coronal and sagittal 5 mm reformations. For radiation dose reduction, the following was used: automated exposure control, adjustment of mA and/or kV according to patient size. COMPARISON: CT chest 03/12/2019. FINDINGS: Image quality: Excellent. Lungs and pleura: Platelike opacity in the right upper lobe juxta fissural. Bibasilar atelectasis. No dular opacity or pulmonary nodule in the left lower lobe subpleural measuring 0.4 cm, (4/120), previo usly not seen. A few other smaller similar appearing opacities which are also not previously seen. rways are clear. No pleural effusions or pneumothorax. Mediastinum: Heart size is normal. Coronary artery calcifications. No pericardial effusion. No med iastinal or hilar adenopathy by size criteria. Thoracic aorta and central pulmonary arteries are nor mal in size. Moderate plaque. Esophagus is normal in caliber. Large hiatal hernia. Bones and chest wall: No suspicious bony lesions. T6, T9, T12 compression fractures. T6 compression fracture is new in the interval compared to 2019. No axillary or supraclavicular adenopathy by size criteria. The thyroid is normal in size and there are no incidental findings. Abdomen: Subtle hypodensity at the falciform ligament. This could be due to focal fatty infiltration . Visualized upper abdominal solid organs appear normal. Upper abdominal bowel loops are normal in c aliber. IMPRESSION: 1. A few small nodular opacities or pulmonary nodules measuring 0.4 cm or less. These are not identif ied on the prior exam. These could be infectious or inflammatory in etiology. Low suspicion for metas tatic disease. 2. Platelike juxtafissural opacity in the right upper lobe. This is a appearance of scarring or atele ctasis. 3. T6 compression fracture which is new in the interval compared to 2019. 4. Large hiatal hernia. Reviewed by: Otoniel Ness MD on 09/28/2021 8:36 AM [facility] Approved by: Otoniel Ness MD on 09/28/2021 8:36 AM [facility] Station ID: [id number]
--- NOTE | 2021-09-28 08:45 | CT Report ---
PROCEDURE: Abdomen/Pelvis WO INDICATIONS: Sepsis. UTI. Eval for obstruction. TECHNIQUE: Noncontrast 5 mm thick sections acquired from the diaphragms to the symphysis. 5 mm coronal and sagi ttal reformats were then performed. For radiation dose reduction, the following was used: automated exposure control, adjustment of mA and/or kV according to patient size. COMPARISON: Same day CT chest with IV contrast. CT chest without contrast 04/22/2017. FINDINGS: Image quality: Excellent. ABDOMEN: Lung bases: Minimal bibasilar atelectasis. No pleural effusion. Large hiatal hernia. Small fat-contai yanet left Bochdalek hernia. Heart size is normal. Solid organs: Liver and spleen are normal in size. Subtle hypodensity at the falciform ligament. Thi s is a appearance of focal fatty infiltration. Small cyst at the right dome of the liver. Gallbladder is not distended. No calcified gallstones. Pancreas is normal in contours. No adrenal nodules. Ki dneys are normal in size, without hydronephrosis. Contrast excreted in the renal collecting system an d urinary bladder. Peritoneum and bowel: Unenhanced bowel loops demonstrate normal wall thickness and caliber. Diverti culosis. Normal appendix. No free fluid or air. Nodes and vessels: No retroperitoneal or mesenteric adenopathy by size criteria. Aorta and inferior vena cava are normal in caliber. Circumferential calcified atherosclerotic plaque. Miscellaneous: Tiny umbilical hernia. PELVIS: Genitourinary: Bladder is mostly decompressed. Bladder is filled with excreted contrast. Uterus is a bsent or severely atrophic. Miscellaneous: No inguinal hernias or adenopathy. Bones: No suspicious bony lesions. Chronic T12 compression fracture. Multilevel DDD. IMPRESSION: 1. No hydronephrosis or hydroureter. 2. No free fluid. No small bowel obstruction. Diverticulosis. No diverticulitis demonstrated. 3. Large hiatal hernia. Reviewed by: Otoniel Ness MD on 09/28/2021 8:44 AM [facility] Approved by: Otoniel Ness MD on 09/28/2021 8:44 AM PST Station ID: [id number]
[2021-09-28 08:58] LABS: CALCIUM 8.8 mg/dL (8.5-10.3); CREATININE 0.5 mg/dL (0.4-1.0); POTASSIUM 3.5 mmol/L (3.5-5.0)
[2021-09-28] MEDS ORDERED: ENOXAPARIN 40 MG/0.4 ML SYRINGE SUBQ SCH (09:00)
[2021-09-28] MEDS: SODIUM CHLORIDE FLUSH 0.9% 10 ML SYRINGE IVP SCH ×2 (09:03→20:33)
[2021-09-28] MEDS: CALCIUM CARBONATE CHEW 500 MG TABLET PO SCH ×2 (11:31→20:32)
--- NOTE | 2021-09-28 14:11 | PHARMACY PROGRESS NOTE ---
- Best Possible Medication History Admit Date and Time: 09/28/21 0132 Processed by: Pharmacy Medication History completed: Yes Patient Interview: Pt unable to participate Secondary Source(s): Physician records, Pharmacy records, Insurance records As the person ultimately responsible for medication therapy, providers are able to order a medication from an existing home medication list in [facility] via the "Reconcile Routine" prior to Confirmation of that medication by credit support specialist. Such practice is discouraged except when the physician, in their clinical judgment, deems that a medical need exists for a medication without regard to previous use.
--- NOTE | 2021-09-28 16:48 | PROVIDER PROGRESS NOTE ---
Hospitalist Cross-cover Note - Cross-Cover Note Cross-Cover Note: This morning Pt was noted to have elevated WBC of 15 (up from 7 a few hours prior) and lactic acid of 3.1. She was started on IV antibiotics for treatment of UTI and IVFs for rehydration. Her lactic acid this afternoon is very slowly trending down and remains high at 2.8. She states that she had been feeling chills, fatigue and malaise over the past few days and felt like she was starting to have a UTI. CT of the chest, abdomen and pelvis have all been negative. She does have a new oxygen requirement as she was found to be 82-89% on room air and requiring nasal cannula. She is on room air at baseline. Does not feel dyspnic but has been unable to maintain her sats on room air. Of note, I was able to discuss her recent alcohol use with her. She states that approximately 6 months ago she started drinking 4 glasses of wine at night to help her fall asleep. She has tried melatonin and other over the counter drugs but nothing has been as helpful as wine. She has not discussed this with her PCP. Feels like she knows she needs to cut down but would rather sleep and is not looking forward to discussing this with her son. Declined a social work consult for resources as she is a member of AA in [place] and feels that she knows how to get resources if needed. Denies use of tobacco, marijuana, heroin, meth or cocaine.
[2021-09-28] MEDS: carvediloL 3.125 MG TABLET PO SCH (20:32)
[2021-09-28] MEDS ORDERED: cefTRIAXone 1 GM in SODIUM CHLORIDE 0.9% MINIBAG 100 ML IV SCH (21:00)
[2021-09-28] MEDS ORDERED: ATORVASTATIN 40 MG TABLET PO SCH (21:00)
[2021-09-29] MEDS: SODIUM CHLORIDE FLUSH 0.9% 10 ML SYRINGE IVP SCH ×2 (00:45→08:27)
[2021-09-29 06:22] LABS: BASOPHILS % (AUTO) 0.5 %; EOSINOPHILS # (AUTO) 0.4 10^3/uL (0.0-0.7); HCT - HEMATOCRIT 22.9 % (37.0-47.0); HGB - HEMOGLOBIN 7.2 g/dL (12.0-16.0); LYMPHOCYTES # (AUTO) 1.7 10^3/uL (1.5-3.5); LYMPHOCYTES % (AUTO) 23.3 %; MEAN CORPUSCULAR HEMOGLOBIN 27.9 pg (27.0-31.0); MEAN CORPUSCULAR HGB CONC 31.4 g/dL (32.0-36.0); MEAN CORPUSCULAR VOLUME 88.8 fL (81.0-99.0); MEAN PLATELET VOLUME 8.5 fL (7.9-10.8); MONOCYTES # (AUTO) 0.8 10^3/uL (0.0-1.0); MONOCYTES % (AUTO) 11.1 %; NEUTROPHILS # (AUTO) 4.4 10^3/uL (1.5-6.6); NEUTROPHILS % (AUTO) 59.8 %; PLT - PLATELET COUNT 524 10^3/uL (130-450); RED BLOOD COUNT 2.58 10^6/uL (4.20-5.40); RED CELL DISTRIBUTION WIDTH 16.1 % (12.0-15.0); WHITE BLOOD COUNT 7.4 x10^3/uL (4.8-10.8)
[2021-09-29 06:31] LABS: CALCIUM 8.6 mg/dL (8.5-10.3); CREATININE 0.6 mg/dL (0.4-1.0); MAGNESIUM 1.7 mg/dL (1.7-2.8); POTASSIUM 3.2 mmol/L (3.5-5.0)
[2021-09-29] MEDS: PANTOPRAZOLE 40 MG TABLET PO SCH (06:45)
[2021-09-29] MEDS ORDERED: POTASSIUM CHLORIDE 20 MEQ TABLET PO ONE (07:23)
[2021-09-29 07:40] LABS: ABSOLUTE RETICS # AUTO 0.047 10^6/uL (0.020-0.110); RED BLOOD COUNT 2.61 10^6/uL (4.20-5.40); RETICULOCYTE COUNT % (AUTO) 1.8 % (0.5-2.3)
[2021-09-29] MEDS ORDERED: FERROUS SULFATE 325 MG TABLET PO SCH (08:00)
[2021-09-29 08:10] LABS: FERRITIN 15.1 ng/mL (11.0-306.8)
[2021-09-29] MEDS: carvediloL 3.125 MG TABLET PO SCH (08:24)
[2021-09-29] MEDS: CALCIUM CARBONATE CHEW 500 MG TABLET PO SCH (08:25)
--- NOTE | 2021-09-29 08:41 | XRAY Report ---
PROCEDURE: Chest 1 View X-Ray INDICATIONS: SOB TECHNIQUE: One view of the chest was acquired. COMPARISON: 01/04/2020 FINDINGS: Surgical changes and devices: None. Lungs and pleura: No pleural effusions or pneumothorax. Minimal streaky bibasilar opacities more pro nounced on the left. No focal consolidation. Mediastinum: Mediastinal contours appear stable. Heart size is normal. Moderate-sized hiatal hernia Bones and chest wall: No suspicious bony lesions. Overlying soft tissues appear unremarkable. IMPRESSION: Minimal streaky bibasilar opacities more pronounced on the left likely representing atelectasis. No f ocal consolidations. Otherwise, no acute cardiopulmonary abnormality seen. Reviewed by: Elier Carvajal MD on 09/29/2021 8:39 AM [facility] Approved by: Elier Carvajal MD on 09/29/2021 8:39 AM [facility] Station ID: [id number]
[2021-09-29 08:47] LABS: % IRON SATURATION 5 % (20-50); IRON 20 ug/dL (28-170); TOTAL IRON BINDING CAPACITY 413 ug/dL (250-450); TRANSFERRIN 295 mg/dL (192-382)
[2021-09-29] MEDS ORDERED: CLOPIDOGREL 75 MG TABLET PO SCH (09:00)
[2021-09-29] MEDS ORDERED: ASPIRIN EC 81 MG TABLET PO SCH (09:00)
[2021-09-29] MEDS ORDERED: SPIRONOLACTONE 25 MG TABLET PO SCH (09:00)
[2021-09-29 09:11] VITALS: BP 148/88
[2021-09-29] MEDS ORDERED: FERROUS GLUCONATE 324 MG TABLET PO SCH (10:00)
[2021-09-29] MEDS ORDERED: CYANOCOBALAMIN 1,000 MCG/ML VIAL IM ONE (10:40)
[2021-09-29] MEDS ORDERED: THIAMINE 100 MG TABLET PO SCH (11:00)
[2021-09-29] MEDS ORDERED: PRENATAL VITAMIN TABLET PO SCH (11:00)
[2021-09-29 12:03] LABS: HCT - HEMATOCRIT 26.8 % (37.0-47.0); HGB - HEMOGLOBIN 8.4 g/dL (12.0-16.0)
[2021-09-29] MEDS ORDERED: SACCHAROMYCES BOULARDII 250 MG CAPSULE PO SCH (13:35)
--- NOTE | 2021-09-29 13:35 | Discharge Plan ---
Discharge Plan Problem Reviewed?: Yes Disposition: Home, Self Care Condition: Stable Prescriptions: cephALEXin [Keflex] 500 mg PO Q6H 5 Days #20 cap Pnv No.95/Ferrous Fum/Folic AC [ Tablet] 1 each PO DAILY #30 tablet Thiamine [Vitamin B-1] 100 mg PO DAILY #30 tablet Diet: Regular Activity Restrictions: Activity as Tolerated Shower Restrictions: No (fall precaution) Instruction Topics: UTI, Cephalexin tablets or capsules, Addiction Alcohol, Abuse Alcohol [facility] Concerns: altered Mental status, UTI, Alcohol abuse Plan of Treatment: Clearly you are alert and oriented on today. You are really wanting to be discharge to home on today. You are prescribed antibiotics to finish the treat ment course for your UTI. Your HGB is stable now, you may followup with your PCP to recheck your HGB in one week. You agree to cut down your alcohol intake, and vitamin B1 are prescribed for you. Care Goals: Stabilization and improvement/resolve of your medical conditions Assessment: Discussed the care plan with you. you are really wanting to be discharged home today. Answered your questions and you understood. Additional Instructions or Follow Up instructions: You may followup With your PCP in 1 week. should your symptoms return or worse, you may present to the ER and call 911 for help No Smoking: If you smoke, Please STOP! Call for help.
--- NOTE | 2021-09-29 13:52 | DISCHARGE SUMMARY ---
Discharge Summary Admit Date: 09/28/21 Discharge Date: 09/29/21 Discharging Provider: Max Stokes Primary Care Provider: Dr. brittney Kumar Condition at Discharge: Stable Discharge Disposition: 01 Home, Self Care Discharge Facility Name: home - DIAGNOSES Discharge Diagnoses with Status of Each Condition: (1) Altered mental status resolved. pt is alert and oriented plus [address] of head reveal no acute process. (2) Lactic acidosis resolved. it is likely caused by her dehydration, alcohol abuse and UTI infection. (3) Urinary tract infection UA culture show gram negative. pt is really wanting to be d/c on today. pt is prescribed Keflex to finish the treatment course. (4) Dehydration resolved. 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 pt is living with her son now. pt is prescribed and vitamin B1. pt has no alcohol withdrawal at hospital. (7) Weight loss CT of chest, head and abdomen does not reveal Malignancy. it is likely secondary to her alcohol abuse, oral intake reduced and large hiatal hernia. Encourage pt eat diet, pt has schedule on 11/21 to have her hernia evaluation and possible surgery, pt agree to reduce her alcohol intake and she is living with her son now. (8) Iron deficiency anemia her HGB is stable. Patient was found to have iron deficiency, patient is prescribed iron, IM of B12 for low B12. pt denies GI bleed, she report normal color stool. resume home PPI. pt may followup with her PCP in one week to recheck HGB. (9)hypoxia resolved. pt had 94% on room air without respiratory distress. CXR reveal no acute abnormality. - HPI History of Present Illness: refer from Ms. Kelley's HPI on 09/28/21 Chel is a 71 year old female with a history of CAD, ischemic cardiomyopathy with reserved EF, GERD, hiatal hernia, dysphagia and anemia who presents with her son for altered mental status. Her son felt she was more confused and slurring her speech over the phone and decided to drive to [facility] from [place], [place] today. When he arrived at his mother's house, he found her conscious on the bathroom ground and decided to bring her to ED for confusion. She reports eating once a day and decreased fluid intake. She has an extensive cardiovascular history including coronary artery disease, ischemic cardiomyopathy with reserved EF, aortic stenosis and hyperlipidemia. She has a total RCA occlusion, left to right collateralization, and 60 - 70% LAD occlusion. She underwent LAD stent placement in 2019. Cardiac MRI from 02/2020 shows an EF of 48% with basilar inferior dyskinesis. Echo from 03/2020 showed aortic stenosis with reserved EF. A PTCA from 04/2020 showed purvi akinesis or dyskinesis. She also had an abnormal stress test. She takes 81mg Aspirin, clopidogrel, carvediol, isosorbide mononitrate, and spironolactone. She is suffering from a symptomatic hiatal hernia that she is supposed to have surgically corrected in October 2021. She attributes her lack of eating or drinking to this hiatal hernia and reports a 10 pound weight loss in the last 3 months. She also suffers from gastric ulcers, dysphagia and GERD which she takes pantoprazole for. She also has chronic iron deficiency anemia which she receives iron transfusions for. This was well controlled until recently. She underwent an EGD to assess the state of her gastric ulcers and to see if this is the source of the recurrent anemia. There was also a solitary lung nodule found on imaging in 2016 with the most recent chest CT in 2018 and chest x-ray in 2019 without change. She quit smoking in 2013. She does report a recent 10 pound weight loss and productive chronic cough without a history of pulmonary disease. She has a history of alcohol abuse and was sober for approximately 20 years, however, the son found an empty liquor bottle and wine bottle today leading him to suspect she is drinking again. She also has a history of depression and has been more withdrawn and socially isolated. She reports not taking any of her medications in the last 2 weeks because "she just didn't feel like it". - ALLERGIES Allergies/Adverse Reactions: Allergies Allergy/AdvReac Type Severity Reaction Status Date / Time povidone-iodine Allergy Intermediate swelling Verified 09/27/21 23:56 [From Betadine] soap * [From Betadine] Allergy Intermediate swelling Verified 09/27/21 23:56 levofloxacin [From Levaquin] Allergy Unknown Verified 09/27/21 23:56 simvastatin [From Zocor] Allergy Unknown Verified 09/27/21 23:56 - MEDICATIONS Home Medications: Ambulatory Orders Medication Instructions Recorded Confirmed Aspirin [Aspirin EC] 81 mg PO DAILY 09/28/21 09/28/21 Carvedilol [Coreg] 6.25 mg PO BID 09/28/21 09/28/21 Cholecalciferol (Vitamin D3) 125 mcg PO DAILY 09/28/21 09/28/21 [Vitamin D3] Clopidogrel [Plavix] 75 mg PO DAILY 09/28/21 09/28/21 Multivitamin [Theragran] 1 tab PO DAILY 09/28/21 09/28/21 Nitroglycerin [Nitrostat] 0.4 mg SL Q5MIN PRN 09/28/21 09/28/21 Pantoprazole [Protonix] 40 mg PO BIDAC 09/28/21 09/28/21 Rosuvastatin Calcium [Crestor] 20 mg PO QPM 09/28/21 09/28/21 Spironolactone [Aldactone] 12.5 mg PO DAILY 09/28/21 09/28/21 Ferrous Sulfate 325 mg PO DAILYWM #30 tab 09/29/21 Pnv No.95/Ferrous Fum/Folic AC 1 each PO DAILY #30 tablet 09/29/21 [ Tablet] Saccharomyces Boulardii [Florastor] 250 mg PO BIDWM #10 cap 09/29/21 Thiamine [Vitamin B-1] 100 mg PO DAILY #30 tablet 09/29/21 cephALEXin [Keflex] 500 mg PO Q6H 5 Days #20 cap 09/29/21 - PHYSICAL EXAM AT DISCHARGE General Appearance: positive: No acute distress, Alert. negative: Lethargic Eyes Bilateral: positive: Normal inspection, PERRL, No lid inflammation ENT: positive: ENT inspection nml, No signs of dehydration. negative: Purulent nasal drainage Neck: positive: Nml inspection, Trachea midline. negative: Tracheal deviation Respiratory: positive: Chest non-tender, No respiratory distress. negative: Wheezes, Rales Cardiovascular: positive: Regular rate & rhythm. negative: Tachycardia, Bradycardia, Systolic murmur Peripheral Pulses: positive: 2+ Abdomen: positive: Non-tender, Nml bowel sounds, No distention. negative: Tenderness Back: positive: Nml inspection Skin: positive: Color nml, Warm, Dry. negative: Cyanosis Extremities: positive: Non-tender, Full ROM, Nml appearance Neurologic/Psychiatric: positive: Oriented x3, Motor nml, Sensation nml, Mood/affect nml. negative: Weakness, Sensory loss, Facial droop, Slurred/abnml speech, Depressed mood/affect - LABS Result Diagrams: 09/29/21 11:58 09/29/21 05:50 - SEPSIS Current Stage of Sepsis: Ruled out - FOLLOW UP Follow Up: Clearly you are alert and oriented on today. You are really wanting to be discharge to home on today. You are prescribed antibiotics to finish the treatment course for your UTI. Your HGB is stable now, you may followup with your PCP to recheck your HGB in one week. You agree to cut down your alcohol intake, and vitamin B1 are prescribed for you. resume your home meds. You may followup With your PCP in 1 week. should your symptoms return or worse, you may present to the ER and call 911 for help - TIME SPENT Time Spent in Discharge (Minutes): 30
[2021-09-29] MEDS ORDERED: PANTOPRAZOLE 40 MG TABLET PO SCH (21:00)
== END 2021-09-29 14:52 | disposition home or self-care (01) ==
LOC: EDUNIT# → ED 23:46 → ICU 09-28 01:32 → MS2 09-28 23:50
PROVIDERS: ADMIT Specialist; ATTEND Nurse Practitioner Gerontology
DX: R41.0 Disorientation, unspecified (principal); E87.2 Acidosis; E86.0 Dehydration; F10.10 Alcohol abuse, uncomplicated; N30.00 Acute cystitis without hematuria; B96.1 Klebsiella pneumoniae [K. pneumoniae] as the cause of diseases classified elsewhere; I25.5 Ischemic cardiomyopathy; K44.9 Diaphragmatic hernia without obstruction or gangrene; R63.4 Abnormal weight loss; Z68.22 Body mass index [BMI] 22.0-22.9, adult; D50.9 Iron deficiency anemia, unspecified; Z20.822 Contact with and (suspected) exposure to COVID-19; I50.9 Heart failure, unspecified; R09.02 Hypoxemia; I25.10 Atherosclerotic heart disease of native coronary artery without angina pectoris; K21.9 Gastro-esophageal reflux disease without esophagitis; R13.10 Dysphagia, unspecified; I35.0 Nonrheumatic aortic (valve) stenosis; E78.5 Hyperlipidemia, unspecified; K25.9 Gastric ulcer, unspecified as acute or chronic, without hemorrhage or perforation; F32.9 Major depressive disorder, single episode, unspecified; M81.0 Age-related osteoporosis without current pathological fracture; M19.90 Unspecified osteoarthritis, unspecified site; R35.0 Frequency of micturition; Z91.14 Patient's other noncompliance with medication regimen; Z79.82 Long term (current) use of aspirin; Z79.02 Long term (current) use of antithrombotics/antiplatelets; Z79.899 Other long term (current) drug therapy; Z95.5 Presence of coronary angioplasty implant and graft; Z96.649 Presence of unspecified artificial hip joint; Z96.659 Presence of unspecified artificial knee joint
CPT/HCPCS: 36415; 51701; 70450; 71045; 71260; 74176; 80048; 80053; 81001; 82550; 82607; 82728; 83540; 83605; 83615; 83690; 83735; 84466; 85014; 85018; 85025; 85045; 87077; 87086; 87181; 87631; 96361; 96365; 96372; 99283; 99285; A9270; G0378; G0480; J1650; J7120; Q9967; 0202U; 80320; 81003

== ENCOUNTER 2021-12-07 10:21 | Outpatient (CLI) | payer MEDICARE | END 2021-12-07 10:22 | disposition EMS.NT | LOC: EMS 10:21 | DX: R55 Syncope and collapse (principal) ==